=== PATIENT | female | born 1940 ===

== ENCOUNTER 2017-02-19 14:04 | Emergency (ER) | payer MEDICARE, OTHER ==
[2017-02-19 14:04] VITALS: BMI 29.2
[2017-02-19 14:26] VITALS: TEMP 98
[2017-02-19] MEDS ORDERED: Lidocaine 5% Patch TD STA (14:46)
--- NOTE | 2017-02-19 14:51 | ED PDOC ---
HPI: Back Time Seen by Provider: 02/19/17 14:35 Chief Complaint (Nursing): Back Pain Chief Complaint (Provider): LEFT buttock pain History Per: Patient Onset/Duration Of Symptoms: Hrs (since 7am when woke up), Persistent Current Symptoms Are (Timing): Still Present Quality Of Discomfort: Sharp, "Pain" Severity: Moderate Previous Symptoms: None Associated Symptoms: None Exacerbating Factor(s): Movement Additional Complaint(s): Localized pain at LEFT buttock radiating down to LEFT knee, since she woke up this morning. No trauma or injury. No heavy lifting, walking, or exertion yesterday. Denies numbness or weakness. Denies bowel or urinary incontinence or retention. Denies night sweats or unintentional weight loss. Denies fever and chills. She has not tried anything for pain. Denies any back pain. PMD [place] Rusty Hunt Past Medical History Reviewed: Historical Data, Nursing Documentation, Vital Signs Vital Signs: Last Vital Signs Temp 98 F 02/19/17 14:23 Pulse 90 02/19/17 14:23 Resp 18 02/19/17 14:23 BP 94/61 L 02/19/17 14:23 Pulse Ox 98 02/19/17 14:23 - Medical History PMH: Arthritis, Asthma ( CHILD), Diabetes, HTN, Hypercholesterolemia, Hyperlipidemia Denies: Chronic Kidney Disease - Surgical History Surgical History: No Surg Hx - Family History Family History: States: Hypertension - Social History Current smoker - smoking cessation education provided: No Alcohol: None - Home Medications Home Medications: Ambulatory Orders Medication Instructions Recorded Allopurinol [Allopurinol] 100 mg PO DAILY 09/30/14 Calcitriol [Rocaltrol] 0.25 mg PO MWF 09/30/14 Insulin Aspart Mix [novolog Mix 20 unit SUBCUT DAILY 09/30/14 70/30] Insulin Beef Zinc (Lente) [Insulin 20 unit SUBCUT HS 09/30/14 Standard Lente] Levothyroxine Sodium 0.075 mg PO DAILY 09/30/14 [Levothyroxine] Olmesartan Medoxomil [Benicar] 40 mg PO DAILY 09/30/14 Cpeze-9-Ggme Ethyl Esters 1 GM 1 gm PO BID 09/30/14 [Lovaza] Torsemide [Demadex] 10 mg PO DAILY 09/30/14 hydrALAZINE [Apresoline] 50 mg PO TID 09/30/14 Acetaminophen [Acetaminophen Extra 1,000 mg PO Q6 PRN #100 tablet 02/19/17 Strength] Cyclobenzaprine [Flexeril] 5 mg PO Q8 PRN #10 tab 02/19/17 Lidocaine 5% [Lidoderm] 1 ea TD DAILY PRN #20 patch 02/19/17 - Allergies Allergies/Adverse Reactions: Allergies Allergy/AdvReac Type Severity Reaction Status Date / Time naproxen [From Naprosyn] AdvReac VOMITING Verified 02/19/17 14:23 salmon AdvReac ITCHING Uncoded 09/30/14 09:11 Review of Systems ROS Statement: Except As Marked, All Systems Reviewed And Found Negative (and as per HPI) Constitutional: Negative for: Fever, Chills Gastrointestinal: Negative for: Abdominal Pain, Constipation, Melena Genitourinary Female: Negative for: Dysuria, Hematuria, Pelvic Pain Musculoskeletal: Positive for: Leg Pain. Negative for: Back Pain Physical Exam - Physical Exam Appears: Positive for: Uncomfortable, In Acute Distress Head Exam: Positive for: ATRAUMATIC, NORMOCEPHALIC Skin: Positive for: Warm, Dry Eye Exam: Positive for: EOMI, PERRL ENT: Positive for: Other (tacky muc membranes) Neck: Positive for: Painless ROM, Supple Cardiovascular/Chest: Positive for: Regular Rate, Rhythm. Negative for: Murmur Respiratory: Positive for: Normal Breath Sounds. Negative for: Respiratory Distress Gastrointestinal/Abdominal: Positive for: Soft. Negative for: Tenderness, Mass , Distended, Guarding, Rebound Back: Positive for: Other (ttp LEFT SI joint and +LEFT straight leg testing). Negative for: L CVA Tenderness, R CVA Tenderness, Vertebral Tenderness, Muscle Spasm Extremity: Positive for: Normal ROM. Negative for: Deformity Lymphatic: Negative for: Adenopathy Neurologic/Psych: Positive for: Alert. Negative for: Motor/Sensory Deficits, Other (saddle anesthesia) - ECG O2 Sat by Pulse Oximetry: 98 - Progress ED Course And Treament: Accession No. : [id number] Patient Name / ID : TODD SAWANT / [id number] Exam Date : 02/19/2017 14:53:21 ( Approved ) Study Comment : Sex / Age : F / 76Y Creator : DELILAH SANTACRUZ MD Dictator : DELILAH SANTACRUZ MD Councilman : Almond Blancher : DELILAH SANTACRUZ MD Approver2 : Report Date : 02/19/2017 16:02:51 My Comment : PROCEDURE: Radiographs of the Lumbar Spine. HISTORY: Left buttock pain COMPARISON: No prior. FINDINGS: BONES: There is normal alignment of the lumbar vertebral bodies. Lumbar lordosis is maintained. Vertebral bodies are normal in height. There is diffuse bone demineralization. There is no acute fracture, spondylolysis or spondylolisthesis. DISC SPACES: There is moderate degenerative disc disease at L2-3 and L5-S1 with reduced disc heights. The remaining disc heights are maintained. OTHER FINDINGS: There are no pathologic soft tissue calcifications. Both sacroiliac joints are normal IMPRESSION: 1. No acute fracture, spondylolysis or spondylolisthesis. 2. Moderate degenerative disc disease at L2-3 and L5-S1. Re-evaluation Time: 15:30 Condition: Re-examined, Improved Disposition - Clinical Impression Clinical Impression: Sciatica Counseled Patient/Family Regarding: Studies Performed, Diagnosis, Need For Followup, Rx Given - Disposition Referrals: Pebbles Hunt MD [Family Provider] - 02/22/17 [facility] [Outside] - 02/22/17 ([facility] Disposition: Routine/Home Disposition Time: 15:30 Condition: IMPROVED Prescriptions: Acetaminophen [Acetaminophen Extra Strength] 1,000 mg PO Q6 PRN #100 tablet PRN Reason: PAIN Cyclobenzaprine [Flexeril] 5 mg PO Q8 PRN #10 tab PRN Reason: muscle spasm Lidocaine 5% [Lidoderm] 1 ea TD DAILY PRN #20 patch PRN Reason: PAIN Instructions: Sciatica (ED) Print Language: UKRAINIAN
[2017-02-19] MEDS ORDERED: Lidocaine 1% Inj (20ml) ONE (15:16)
--- NOTE | 2017-02-19 16:04 | RAD ---
PROCEDURE: Radiographs of the Lumbar Spine. HISTORY: Left buttock pain COMPARISON: No prior. FINDINGS: BONES: There is normal alignment of the lumbar vertebral bodies. Lumbar lordosis is maintained. Vertebral bodies are normal in height. There is diffuse bone demineralization. There is no acute fracture, spondylolysis or spondylolisthesis. DISC SPACES: There is moderate degenerative disc disease at L2-3 and L5-S1 with reduced disc heights. The remaining disc heights are maintained. OTHER FINDINGS: There are no pathologic soft tissue calcifications. Both sacroiliac joints are normal IMPRESSION: 1. No acute fracture, spondylolysis or spondylolisthesis. 2. Moderate degenerative disc disease at L2-3 and L5-S1.
[2017-02-19 16:31] VITALS: BP 100/64; PULSE 66; RESP 16
[2017-02-19 16:40] VITALS: O2SAT 98
== END 2017-02-19 16:40 | disposition home or self-care (01) ==
LOC: H.ER 14:04
DX: M54.32 Sciatica, left side (principal)

== ENCOUNTER 2017-05-01 06:50 | Day surgery (SDC) | payer MEDICARE, OTHER ==
[2017-05-01 08:33] VITALS: BMI 29.4
[2017-05-01] MEDS ORDERED: Lidocaine 1% Inj (20ml) ONE (09:15)
[2017-05-01] MEDS ORDERED: Midazolam 2 MG/2 ML VIAL ONE (09:56)
[2017-05-01] MEDS ORDERED: Absorbable Gelatin Sponge Size 12-7 ONE (10:06)
--- NOTE | 2017-05-01 10:17 | CP.SDSHP ---
Same Day Surgery H & P - History Proposed Procedure: US guided renal biopsy Pre-Op Diagnosis: Renal insufficiency - Allergies Allergies: Allergies ibuprofen [From Advil] Allergy (Verified 05/01/17 08:41) DIZZINESS naproxen [From Naprosyn] Adverse Reaction (Verified 05/01/17 08:41) VOMITING salmon Adverse Reaction (Uncoded 05/01/17 08:41) ITCHING - Physical Exam Vital Signs: Vital Signs 05/01/17 05/01/17 05/01/17 08:25 08:29 09:25 Temperature 97.8 F 98.7 F Pulse Rate 97 H 97 H 90 Respiratory 20 18 Rate Blood Pressure 153/81 H 160/70 H O2 Sat by Pulse 97 100 Oximetry Mental Status: Alert & Oriented x3 Neuro: WNL Heart: WNL Lungs: WNL - Impression Impression: Pt with renal insufficiency. Ultrasound showed echogenic kidneys. Plan US guided right renal biopsy. Informed consent obtained. Pt. Evaluated Today:Candidate for Anesthesia & Procedure: Yes (ASA 3 Malampati 3) - Date & Time Date: 05/01/17 Time: 09:55 Short Stay Discharge - Short Stay Discharge Admitting Diagnosis/Reason for Visit: PROREINURIA Referrals: Pebbles Hunt MD [Primary Care Provider] -
--- NOTE | 2017-05-01 10:19 | PCM.SURG1 ---
Surgeon's Initial Post Op Note - Surgeon's Notes Surgeon: Duc Nance MD Property Insurance Inspector: NONE Type of Anesthesia: IV Sedation Pre-Operative Diagnosis: Renal insufficiency Operative Findings: US showed echogenic right and left kidneys consistent with medical renal disease. Post-Operative Diagnosis: Renal insufficiency Operation Performed: US guided right renal biopsy. 18 gauge core specimen sent for routine histology. Biopsy tract embolized with gelfoam. Specimen/Specimens Removed: 18 gauge core x 3 Estimated Blood Loss: EBL {In ML}: 1 Blood Products Given: N/A Drains Used: No Drains Post-Op Condition: Fair Date of Surgery/Procedure: 05/01/17 Time of Surgery/Procedure: 10:15
[2017-05-01 13:09] VITALS: RESP 18; TEMP 97.6
[2017-05-01 13:41] VITALS: BP 141/59; PULSE 58; O2SAT 93
--- NOTE | 2017-05-02 13:38 | US ---
PROCEDURE: Date of procedure: 05/01/2017 Procedure: Ultrasound-guided right renal biopsy, CPT 15274 Ultrasound guidance for biopsy, [address]83 Medication: 8 cc 2% Lidocaine, patient received IV sedation by the anesthesiologist along with physiologic monitoring. HISTORY: Renal insufficiency TECHNIQUE: Following informed consent and procedure time-out, the patient was placed prone on the interventional table and a limited ultrasound showed echogenic left and right kidneys. Access to the lower pole left kidney was obstructed by overlying ribs. Right kidney was selected for biopsy. There is no hydronephrosis or mass. The patient right back was prepped and draped in the usual sterile fashion. After patient sedated by the anesthesiologist and the skin anesthetized with lidocaine, an 18 gauge core needle was advanced percutaneously towards the lower pole cortex. Upon confirmation of needle position, three-18 gauge core specimens were obtained and sent for routine pathology. The biopsy tract was then embolized with Gelfoam. A post biopsy ultrasound showed no hematoma. There were no immediate complications. IMPRESSION: Ultrasound-guided right renal biopsy.
== END 2017-05-01 12:45 | disposition home or self-care (01) ==
LOC: H.OPSURG 06:50
PROVIDERS: ATTEND Internal Medicine Nephrology
DX: N28.9 Disorder of kidney and ureter, unspecified (principal); Z88.6 Allergy status to analgesic agent; M32.14 Glomerular disease in systemic lupus erythematosus; E78.5 Hyperlipidemia, unspecified; E11.22 Type 2 diabetes mellitus with diabetic chronic kidney disease; I12.9 Hypertensive chronic kidney disease with stage 1 through stage 4 chronic kidney disease, or unspecified chronic kidney disease; N18.2 Chronic kidney disease, stage 2 (mild)
CPT/HCPCS: 50200; 82948; 88305; J2250; J3010

== ENCOUNTER 2017-09-12 10:01 | Day surgery (SDC) | payer MEDICARE, OTHER ==
[2017-08-03 08:07] VITALS: BMI 29.6
--- NOTE | 2017-09-12 10:45 | CP.PCM.PN ---
Subjective - Date & Time of Evaluation Date of Evaluation: 09/12/17 Time of Evaluation: 10:42 - Subjective Subjective: 77 year old female with PMHx HTN, IDDM2 seen in [facility] for preoperative evaluation prior to undergoing left ankle arthroscopy with synovectomy and lateral ankle stabilization. Patient is AAO x 3 and NAD at time of visit. She states that she experiences moderate pain to her left ankle when she walks and denies any further pedal complaints at this time. She denies any recent N/V/F/C/CP/SOB/D/ posterior calf pain when squeezed. States that she has been NPO since ten o' clock last night. Also states that she had previous surgery on this foot where she experienced some nausea postoperatively. Patient also states that she took her blood pressure medication this morning. Objective - Constitutional Appears: Well, Non-toxic, No Acute Distress - Extremities Exam Additional comments: LLE focused exam: Vasc: DP/PT pulses 2/4 b/l. Skin temperature warm to warm from proximal to distal. CFT < 3 seconds to all digits b/l. Minimal edema noted to lateral left ankle Neuro: Epicritic and protective sensation grossly intact b/l Derm: No open lesions, wounds, maceration, xerosis, abnormal pigmentation or abnormal growths noted b/l MSK: Minimal POP to level of ATFL. Pain with PROM and AROM of left ankle joint. No other gross musculoskeletal deformities noted - Neurological Exam Neurological Exam: Alert, Awake, Oriented x3 - Psychiatric Exam Psychiatric exam: Normal Affect, Normal Mood Assessment and Plan - Assessment and Plan (Free Text) Assessment: 77 year old female seen in [facility] preoperatively before surgery with Dr. Andrew this afternoon (Left ankle arthroscopy and left lateral ankle stabilization) Plan: Pt was seen and examined in [facility] Pt NPO status was confirmed All Pre-op testing and clearance was in the chart Pt has exhausted all conservative treatment at this time and is opting for surgical intervention Pt was explained procedure and post-operative course All pt's questions were answered to satisfaction No guarantees were made Pt understands all risks, benefits and complications of procedure Pt will follow-up with Dr. Andrew
--- NOTE | 2017-09-12 10:52 | CP.SDSHP ---
Same Day Surgery H & P - History Proposed Procedure: Left ankle arthroscopy with synovectomy, left lateral ankle stabilization Pre-Op Diagnosis: Painful, arthritic left ankle and weakened lateral collateral ligaments of left ankle - Previous Medical/Surgical History Pain: 6.Severe Pain Previous Surgical History: Left ankle - Allergies Allergies: Allergies ibuprofen [From Advil] Allergy (Verified 05/01/17 08:41) DIZZINESS naproxen [From Naprosyn] Adverse Reaction (Verified 05/01/17 08:41) VOMITING salmon Adverse Reaction (Uncoded 05/01/17 08:41) ITCHING - Physical Exam Mental Status: Alert & Oriented x3 - {Optional Preform as Required} Integument: WNL Ortho: Other - Impression Pt. Evaluated Today:Candidate for Anesthesia & Procedure: Yes - Date & Time Date: 09/12/17 Time: 10:52 Short Stay Discharge - Short Stay Discharge Admitting Diagnosis/Reason for Visit: M65.872 /M25.572/ S93.492S/ M25.272/ Disposition: HOME/ ROUTINE Referrals: Pebbles Hunt MD [Primary Care Provider] -
[2017-09-12] MEDS ORDERED: Lidocaine 1% Inj (20ml) IJ ONE (10:53)
[2017-09-12] MEDS ORDERED: ceFAZolin 1 GM in Sodium Chloride 0.9% 100 ML IVPB ONE (10:53)
[2017-09-12] MEDS ORDERED: Bupivacaine 0.5% Inj(30mL) IJ ONE (10:53)
[2017-09-12] MEDS ORDERED: Sodium Chloride 0.9% 1,000 ML IV SCH (11:00)
[2017-09-12] MEDS ORDERED: Lactated Ringer's 1,000 ML IV ONE (12:00)
[2017-09-12] MEDS ORDERED: Propofol 10 mg/ml Inj (20 ML) ONE (13:58)
[2017-09-12] MEDS ORDERED: Midazolam 2 MG/2 ML VIAL ONE (13:58)
[2017-09-12] MEDS ORDERED: ePHEDrine 50 mg/ml Inj ONE (13:59)
[2017-09-12] MEDS ORDERED: Rocuronium 10 mg/ml (5 ml) ONE (14:00)
[2017-09-12] MEDS ORDERED: Lidocaine 4% (Laryng-O-Jet) Kit MM ONE (14:01)
[2017-09-12] MEDS ORDERED: Succinylcholine 200 mg/10 ml Inj IV ONE (14:01)
[2017-09-12] MEDS ORDERED: Lidocaine Hydrochloride 1% 0 ML ONE (14:02)
[2017-09-12] MEDS ORDERED: Bupivacaine 0.5% Inj(30mL) ONE (14:03)
[2017-09-12] MEDS ORDERED: EPINEPHrine 1 mg/ml (1:1000) Inj ONE (14:09)
[2017-09-12] MEDS ORDERED: Phenylephrine 10 mg/ml Inj ONE (14:38)
[2017-09-12] MEDS ORDERED: Dexamethasone 4 mg/1 ml ONE (15:09)
[2017-09-12] MEDS ORDERED: Desflurane Inhalation Anesthetic Liq (240 ml) ONE (15:11)
[2017-09-12] MEDS ORDERED: Esmolol 100 mg/10ml Inj IV ONE (15:37)
[2017-09-12] MEDS ORDERED: Bupivacaine 0.5% 50 ML IJ ONE (15:50)
--- NOTE | 2017-09-12 16:07 | PCM.SURG1 ---
Surgeon's Initial Post Op Note - Surgeon's Notes Surgeon: Dr. Aaron Andrew, DPM Senior Physician: Emery Breen PGY3, Luis Antonio Wiseman PGY2 Type of Anesthesia: General Endo Anesthesia Administered By: Dr. Lopez Pre-Operative Diagnosis: Synovitis and fibrosis of left ankle, instability left ankle, pain Operative Findings: See dictation report. M- 4-0 vicryl, 4-0 monocryl, suture conrad, internal brace. I- 20 cc 0.5% marcaine plain Post-Operative Diagnosis: Same Operation Performed: Surgical arthroscopy of left ankle, lateral ankle stabilization, left ankle platelet rich plasma grafting Specimen/Specimens Removed: None Estimated Blood Loss: EBL {In ML}: 3 Blood Products Given: N/A Drains Used: No Drains Post-Op Condition: Good Date of Surgery/Procedure: 09/12/17 Time of Surgery/Procedure: 16:08
[2017-09-12 16:35] VITALS: RESP 18
[2017-09-12 19:07] VITALS: BP 150/69; PULSE 99; TEMP 98; O2SAT 96
--- NOTE | 2017-09-14 08:20 | OP ---
PROCEDURE DATE: 09/12/2017 PREOPERATIVE DIAGNOSES: 1. Left ankle synovitis and fibrosis. 2. Left ankle instability. 3. Left ankle pain and edema. POSTOPERATIVE DIAGNOSES: 1. Left ankle synovitis and fibrosis. 2. Left ankle instability. 3. Left ankle pain and edema. PROCEDURE PERFORMED: 1. Left ankle surgical arthroscopy. 2. Left ankle lateral ankle stabilization. 3. Left ankle grafting with platelet-rich plasma. SURGEON: Aaron Andrew DPM ASSISTANTS: Delisa Wiseman DPM, PGY-[address] Emery Breen DPM, PGY-3. TYPE OF ANESTHESIA: General. ANESTHESIA ADMINISTERED BY: Priyanka Lopez MD. INDICATION: The patient is a 77-year-old female with the above-mentioned diagnoses. The patient is being treated by Dr. Andrew's office on an outpatient basis where she has exhausted multiple forms of conservative treatment. The patient seeks surgical intervention at this time. All risks, benefits, and possible complications to the postprocedure have been explained to the patient at length. The patient verbalizes understanding and wishes to proceed. All questions were answered. No guarantees were given or implied. Consent was signed and n.p.o. status was confirmed prior to bringing the patient to the operating room. OPERATIVE PROCEDURE: The patient was brought into the operating room and placed on the operating room table in the supine position. A well-padded pneumatic thigh tourniquet was applied to the patient's left thigh. Once general anesthesia was achieved, the left lower extremity was prepped and draped in the usual sterile manner and the procedure began. PROCEDURE 1: Left ankle surgical arthroscopy. Attention was directed to the dorsal aspect of the patient's left ankle where the ankle joint was infiltrated with 10 mL of 1% lidocaine plain. Next, utilizing a marking pen, the anatomical landmarks were identified as well as the medial and lateral gutter. Next, utilizing #11 blade, the medial portal was created and deepened with the hemostat for the level of the ankle joint. Next, using an obturator, the ankle joint was entered and a scope was inserted. There abundance of hypertrophic synovium as well as fibrous bands within the ankle joint. The lateral portal was then created utilizing an #11 blade and a hemostat down to the level of the ankle joint. The trocar was then placed into the lateral port and triangulated along the scope. At this time, a 3.5 Aggressive shaver was inserted through the lateral portal and debridement of the hypertrophic synovium and fibrous band begun. Ankle joint was also osteochondral lesion. Once the debridement was complete, the scope and shaver were then removed from a port. The medial portal was then closed with #4-0 Monocryl. PROCEDURE 2: Left lateral ankle stabilization. Attention was then directed to the lateral aspect of the ankle joint overlying where the anterior tibiofibular ligament is located. A curvilinear incision was created overlying the ATFL at the level of lateral gutter of the ankle joint. The incision was carried down to the subcutaneous tissue with care being taken to identify and retract all vital neurovascular structures. All bleeders were cauterized and ligated as necessary. Next, utilizing a #15 blade, a capsular structures were incised on a vertical fashion overlying the sinus tarsi. Once the capsular structures were incised, it was noted that the ATFL and ruptured at the distal portion intact. At this time, ankle joint was inverted and articular cartilage and lateral gutter were inspected for any osteochondral lesions and none were noted. Ankle joint was then irrigated. Next, the drill bit from the internal brace kit was utilized to create a drill hole on of the talus approximately 45 degrees to prevent the ankle joint. The drill hole was then packed. Next, Silverlock, which was loaded with FiberTape was placed into the drill hole. Next, the drill bit from the internal brace kit was used to create a drill hole approximately 0.5 cm proximal to the distal tip of the tibia and Silverlock tape was used. The FiberTape was inserted operative field to perform a modified Brostrom technique. Next, a drill bit was used to create a drill hole in the lateral aspect of the talus and a 2.5 mL SutureTak was placed in the drill hole. The sutures were then ligament and the capsular structures in an over and over suture fashion. technique, the foot was placed in dorsal flexion everted position as the sutures were tied down to the ATFL. The FiberTape from the internal brace was cut through the Silverlock and ankle was inserted into the talar tunnel with the mallet was fixed for proper placement and fit in FiberTape was cut and removed from the operative field. Ankle was eversion and inversion with excellent stability noted. Utilizing a mini FiberWire, the periosteum subcutaneous tissues were approximated. PROCEDURE 3: Grafting with platelet-rich plasma. Attention was directed back to the incision line. autologous platelet-rich plasma was introduced into the site. Next with the use of 4-0 Vicryl, the subcutaneous tissue was reapproximated. The skin was then reapproximated with 4-0 Monocryl in a subcuticular pattern. A postoperative instruction consisting of 20 mL of 0.5% Marcaine plain was given in a local block fashion to the patient's left ankle. Postoperative dressings included Steri-Strips, saline, gauze, 4x4s, Kerlix, and Fish. POSTOPERATIVE CONDITION: The patient tolerated the anesthesia and procedure well with no apparent complications or complaints. The patient was transferred from operating room to the recovery room with vital signs stable and neurovascular structures intact. The patient will follow up with Dr. Andrew in his office on an outpatient basis. Delisa Wiseman DPM Aaron Andrew DPM
== END 2017-09-12 19:40 | disposition home or self-care (01) ==
LOC: H.OPSURG 10:01
PROVIDERS: ATTEND Podiatrist
DX: M65.872 Other synovitis and tenosynovitis, left ankle and foot (principal); I10 Essential (primary) hypertension; E11.9 Type 2 diabetes mellitus without complications; M25.272 Flail joint, left ankle and foot; M25.572 Pain in left ankle and joints of left foot; Z79.4 Long term (current) use of insulin; Z88.6 Allergy status to analgesic agent
CPT/HCPCS: 0232T; 29899; 82948; 97161; C1713; G8978; G8979; G8980; J0171; J0330; J0690; J1100; J2001; J2250; J2370; J2704; J2765; J3010; J7030; J7120

== ENCOUNTER 2018-03-02 06:34 | Emergency (ER) | payer MEDICARE, OTHER ==
[2018-03-02 06:53] VITALS: BMI 30.2
[2018-03-02] MEDS ORDERED: Dextrose 5%/0.45% NS 1,000 ML IV SCH (07:15)
--- NOTE | 2018-03-02 07:20 | ED PDOC ---
HPI: General Adult Time Seen by Provider: 03/02/18 07:00 Chief Complaint (Nursing): Altered Mental Status Chief Complaint (Provider): Altered Mental Status History Per: Patient, Family History/Exam Limitations: no limitations Onset/Duration Of Symptoms: Mins (CONTINUOUS IMPROVEMENT DIRECTOR) Current Symptoms Are (Timing): Better Additional Complaint(s): 77 year old female with a history of diabetes, HTN and hypothyroidism presents to the ED via EMS after patient was found diaphoretic and confused by family this morning. On arrival, glucose was found to be 55 and PO glucose was administered. Patient then became awake and responsive, but had no recollection of the event. She took her insulin last night. Denies chest pain, headache and focal weakness. PMD: Dr. Pebbles Hunt Past Medical History Reviewed: Historical Data, Nursing Documentation, Vital Signs Vital Signs: Last Vital Signs Temp 98.7 F 03/02/18 06:53 Pulse 99 H 03/02/18 06:53 Resp 20 03/02/18 06:53 BP 153/59 H 03/02/18 06:53 Pulse Ox 99 03/02/18 06:53 - Medical History PMH: Arthritis, Asthma ( CHILD), Diabetes, HTN, Hypercholesterolemia, Hyperlipidemia, Hypothyroidism, Chronic Kidney Disease - Surgical History Surgical History: No Surg Hx - Family History Family History: States: Hypertension - Home Medications Home Medications: Ambulatory Orders Medication Instructions Recorded Calcitriol [Rocaltrol] 0.25 mg PO DAILY 09/30/14 Insulin Aspart Mix [novolog Mix 15 unit SUBCUT DAILY 09/30/14 70/30] Levothyroxine Sodium 0.075 mg PO DAILY 09/30/14 [Levothyroxine] [id number]-1-Koqf Ethyl Esters 1 GM 2 gm PO DAILY 09/30/14 [Lovaza] hydrALAZINE [Apresoline] 50 mg PO Q8 09/30/14 Insulin Glargine, Recombina 25 unit SUBCUT QPM 05/01/17 [Lantus] Losartan Potassium [Cozaar] 100 mg PO DAILY 05/01/17 Allopurinol [Zyloprim] 100 mg PO DAILY 09/12/17 - Allergies Allergies/Adverse Reactions: Allergies Allergy/AdvReac Type Severity Reaction Status Date / Time ibuprofen [From Advil] Allergy DIZZINESS Verified 03/02/18 06:52 naproxen [From Naprosyn] AdvReac VOMITING Verified 03/02/18 06:52 salmon AdvReac ITCHING Uncoded 03/02/18 06:52 Review of Systems ROS Statement: Except As Marked, All Systems Reviewed And Found Negative Constitutional: Positive for: Sweats Neurological: Positive for: Confusion. Negative for: Weakness, Headache Physical Exam - Reviewed Nursing Documentation Reviewed: Yes Vital Signs Reviewed: Yes - Physical Exam Appears: Positive for: Non-toxic, No Acute Distress Head Exam: Positive for: ATRAUMATIC, NORMAL INSPECTION, NORMOCEPHALIC Skin: Positive for: Normal Color, Warm, Dry Eye Exam: Positive for: EOMI, Normal appearance, PERRL Neck: Positive for: Normal, Painless ROM, Supple Cardiovascular/Chest: Positive for: Regular Rate, Rhythm. Negative for: Murmur Respiratory: Positive for: Normal Breath Sounds. Negative for: Respiratory Distress Gastrointestinal/Abdominal: Positive for: Normal Exam, Soft. Negative for: Tenderness Extremity: Positive for: Normal ROM (x 4). Negative for: Deformity Neurologic/Psych: Positive for: Alert, Oriented (x 3). Negative for: Motor/Sensory Deficits, Facial Droop - Laboratory Results Result Diagrams: 03/02/18 08:22 03/02/18 08:22 - ECG O2 Sat by Pulse Oximetry: 99 (RA) Pulse Ox Interpretation: Normal Medical Decision Making Medical Decision Makin:07 Impression: Initial Plan: --EKG --CMP --CBC --Dextrose 5% IV 80 mls/hr Scribe Attestation: Documented by Mariah Valencia acting as a scribe for Maxime Simmons MD Advised 24 hr obs for hypoglycemia. Pt declines admission. Aware of risks including recurrent hypoglycemia and . Will f/u [facility] Provider Scribe Attestation: All medical record entries made by the Scribe were at my direction and personally dictated by me. I have reviewed the chart and agree that the record accurately reflects my personal performance of the history, physical exam, m edical decision making, and the department course for this patient. I have also personally directed, reviewed, and agree with the discharge instructions and disposition. Disposition - Clinical Impression Clinical Impression: Hypoglycemia - Patient ED Disposition Is Patient to be Admitted: No - Disposition Referrals: Pebbles Hunt MD [Family Provider] - Disposition: Routine/Home Disposition Time: 10:35 Condition: FAIR Instructions: Low Blood Sugar, Adult (DC) Forms: Nosto (Uzbek)
[2018-03-02 08:27] LABS: BASO % 0.3 % (0.0-2.0); EOS # 0.1 K/uL (0.0-0.7); EOS % 0.7 % (0.0-4.0); HEMOGLOBIN 9.8 g/dL (12.0-16.0); LYMPH # 1.6 K/uL (1.0-4.3); LYMPH % 17.9 % (20.0-40.0); MEAN CELL VOLUME 96.3 fl (81.0-99.0); MEAN CORPUSCULAR HEMOGLOBIN 31.4 pg (27.0-31.0); MEAN CORPUSCULAR HGB CONC 32.6 g/dL (33.0-37.0); MEAN PLATELET VOLUME 9.1 fl (7.2-11.7); MONO # 0.9 K/uL (0.0-0.8); MONO % 9.7 % (0.0-10.0); NEUT # 6.4 K/uL (1.8-7.0); NEUT % 71.4 % (50.0-75.0); RBC 3.13 Mil/uL (3.80-5.20); RED CELL DISTRIBUTION WIDTH 14.5 % (11.5-14.5); WHITE BLOOD COUNT 8.9 K/uL (4.8-10.8)
[2018-03-02 08:37] LABS: ALB/GLOB RATIO 1.1 (1.0-2.1); ALBUMIN 3.9 g/dL (3.5-5.0); CALCIUM 9.8 mg/dL (8.4-10.2)
--- NOTE | 2018-03-02 09:09 | CARD ---
APPROVED REPORT Date of service: 03/02/2018 EKG Measurement Heart [id number] ID [id number] <Conclusion> Normal sinus rhythm Nonspecific ST abnormality Abnormal ECG
[2018-03-02 10:50] VITALS: BP 158/66; PULSE 82; RESP 15; TEMP 98; O2SAT 97
--- NOTE | 2018-03-02 10:50 | CP.PCM.CON ---
<Mireya Breen - Last Filed: 03/02/18 10:50> History of Present Illness - History of Present Illness History of Present Illness: Patient seen and evaluated by me in the ER. Patient is AAOx3, family at bedside. Patient was informed about admission but family and patient requested discharge home. Patient signed AMA, risks explained, ER precautions discussed, advised to return of symptoms reoccurs. PMD: Dr. Hunt S: Patient came to ER after found diaphoretic and confused by family. Upon ar rival, Blood sugar 55, given PO glucose. Patient is asymptomatic currently. O: VS and Labs reviewed, EKG reviewed PE: AAOx3 A/P: Plan was to admit patient for further evaluation and treatment but patient signs AMA. Case discussed with Dr. Parish (Case discussed with Dr. Hunt ) --- Mireya Breen, PGY-II Past Patient History - Past Medical History & Family History Past Medical History?: Yes - Past Social History Smoking Status: Never Smoked - CARDIAC Hx Hypercholesterolemia: Yes Hx Hypertension: Yes - PULMONARY Hx Asthma: Yes ( CHILD) - NEUROLOGICAL Hx Neurological Disorder: No - HEENT Hx HEENT Problems: Yes Hx Cataracts: Yes Hx Glaucoma: Yes - RENAL Hx Chronic Kidney Disease: Yes - ENDOCRINE/METABOLIC Hx Hypothyroidism: Yes - HEMATOLOGICAL/ONCOLOGICAL Hx Blood Disorders: No - INTEGUMENTARY Hx Dermatological Problems: No - MUSCULOSKELETAL/RHEUMATOLOGICAL Hx Arthritis: Yes - GASTROINTESTINAL Hx Gastrointestinal Disorders: No - GENITOURINARY/GYNECOLOGICAL Hx Genitourinary Disorders: No - PSYCHIATRIC Hx Emotional Abuse: No Hx Physical Abuse: No Hx Substance Use: No - SURGICAL HISTORY Hx Surgeries: Yes Hx Cataract Extraction: Yes Hx Dilation and Curettage: Yes Hx Musculoskeletal Surgery: Yes (LEFT FOOT) - ANESTHESIA Hx Anesthesia: Yes Hx Anesthesia Reactions: Yes (too much vomiting) Hx Malignant Hyperthermia: No Meds Allergies/Adverse Reactions: Allergies Allergy/AdvReac Type Severity Reaction Status Date / Time ibuprofen [From Advil] Allergy DIZZINESS Verified 03/02/18 06:52 naproxen [From Naprosyn] AdvReac VOMITING Verified 03/02/18 06:52 salmon AdvReac ITCHING Uncoded 03/02/18 06:52 - Medications Medications: Current Medications Dextrose/Sodium Chloride (Dextrose 5%/0.45% Ns 1000 Ml) 1,000 mls @ 80 mls/hr IV .[id number] ROME Stop: 03/03/18 07:07 Last Admin: 03/02/18 07:51 Dose: 80 mls/hr Results - Vital Signs Recent Vital Signs: Last Vital Signs Temp 98.7 F 03/02/18 06:53 Pulse 99 H 03/02/18 06:53 Resp 20 03/02/18 06:53 BP 153/59 H 03/02/18 06:53 Pulse Ox 99 03/02/18 10:36 - Labs Result Diagrams: 03/02/18 08:22 03/02/18 08:22 Labs: Laboratory Results - last 24 hr 03/02/18 03/02/18 03/02/18 06:48 08:22 08:22 WBC 8.9 RBC 3.13 L Hgb 9.8 L Hct 30.2 L MCV 96.3 D MCH 31.4 H MCHC 32.6 L RDW 14.5 Plt Count 250 MPV 9.1 Neut % (Auto) 71.4 Lymph % (Auto) 17.9 L [place] % (Auto) 9.7 Eos % (Auto) 0.7 Baso % (Auto) 0.3 Neut # (Auto) 6.4 Lymph # (Auto) 1.6 [place] # (Auto) 0.9 H Eos # (Auto) 0.1 Baso # (Auto) 0.0 Sodium 142 Potassium 5.0 Chloride 112 H Carbon Dioxide 17 L Anion Gap 18 BUN 73 H Creatinine 4.3 H Est GFR ( Amer) 12 Est GFR (Non-Af Amer) 10 POC Glucose (mg/dL) 192 H Random Glucose 192 H Calcium 9.8 Total Bilirubin 0.2 AST 28 ALT 23 Alkaline Phosphatase 89 Total Protein 7.3 Albumin 3.9 Globulin 3.4 Albumin/Globulin Ratio 1.1 <Wilberto Parish D - Last Filed: 03/02/18 11:05> Results - Vital Signs Recent Vital Signs: Last Vital Signs Temp 98 F 03/02/18 10:44 Pulse 82 03/02/18 10:44 Resp 15 03/02/18 10:44 BP 158/66 H 03/02/18 10:44 Pulse Ox 97 03/02/18 10:44 - Labs Result Diagrams: 03/02/18 08:22 03/02/18 08:22 Labs: Laboratory Results - last 24 hr 10/06/18 10/06/18 10/06/18 06:48 08:22 08:22 WBC 8.9 RBC 3.13 L Hgb 9.8 L Hct 30.2 L MCV 96.3 D MCH 31.4 H MCHC 32.6 L RDW 14.5 Plt Count 250 MPV 9.1 Neut % (Auto) 71.4 Lymph % (Auto) 17.9 L [place] % (Auto) 9.7 Eos % (Auto) 0.7 Baso % (Auto) 0.3 Neut # (Auto) 6.4 Lymph # (Auto) 1.6 [place] # (Auto) 0.9 H Eos # (Auto) 0.1 Baso # (Auto) 0.0 Sodium 142 Potassium 5.0 Chloride 112 H Carbon Dioxide 17 L Anion Gap 18 BUN 73 H Creatinine 4.3 H Est GFR ( Amer) 12 Est GFR (Non-Af Amer) 10 POC Glucose (mg/dL) 192 H Random Glucose 192 H Calcium 9.8 Total Bilirubin 0.2 AST 28 ALT 23 Alkaline Phosphatase 89 Total Protein 7.3 Albumin 3.9 Globulin 3.4 Albumin/Globulin Ratio 1.1 Attending/Attestation - Attestation I have personally seen and examined this patient.: Yes I have fully participated in the care of the patient.: Yes I have reviewed all pertinent clinical information: Yes
== END 2018-03-02 10:44 | disposition home or self-care (01) ==
LOC: H.ER 06:34
DX: E11.649 Type 2 diabetes mellitus with hypoglycemia without coma (principal); Z79.4 Long term (current) use of insulin; I12.9 Hypertensive chronic kidney disease with stage 1 through stage 4 chronic kidney disease, or unspecified chronic kidney disease
CPT/HCPCS: 80053; 82948; 85025; 93005; 96360; 96361; 99285; J7042

== ENCOUNTER 2018-08-19 14:13 | Inpatient (IN) | payer MEDICARE, OTHER ==
[2018-08-19 14:14] VITALS: BMI 27.4
--- NOTE | 2018-08-19 14:51 | ED PDOC ---
HPI: General Adult Time Seen by Provider: 08/19/18 14:39 Chief Complaint (Nursing): Abnormal Labs Chief Complaint (Provider): Abnormal labs History Per: Patient History/Exam Limitations: no limitations Additional Complaint(s): 78yo female, sent to ER by Dr. Robbins for initiation of hemodialysis; patient had a right upper extremity shunt placed in April; offers no active complaints. She denies any weakness, chest pain, shortness of breath, and offers no medical complaints. PMD: Diabetes, hypertension, hyperlipidemia, chronic kidney diease Past Medical History Reviewed: Historical Data, Nursing Documentation, Vital Signs Vital Signs: Last Vital Signs Temp 97 F L 08/19/18 14:19 Pulse 78 08/19/18 14:19 Resp 18 08/19/18 14:19 BP 177/75 H 08/19/18 14:19 Pulse Ox 95 08/19/18 14:19 - Medical History PMH: Anemia, Arthritis, Asthma ( CHILD), Diabetes, Fractures (LEFT ANKLE), HTN, Hypercholesterolemia, Hyperlipidemia, Hypothyroidism, Chronic Kidney Disease - Family History Family History: States: Hypertension - Immunization History Hx Tetanus Toxoid Vaccination: No Hx Influenza Vaccination: Yes Hx Pneumococcal Vaccination: No - Home Medications Home Medications: Ambulatory Orders Medication Instructions Recorded Calcitriol [Rocaltrol] 0.25 mg PO DAILY 09/30/14 Qvbuj-2-Vfet Ethyl Esters 1 GM 4 gm PO BID 09/30/14 [Lovaza] Allopurinol [Zyloprim] 100 mg PO DAILY 09/12/17 Ferrous Sulfate 325 mg PO BID 06/14/18 Hydralazine HCl 100 mg PO TID 06/14/18 Patiromer Calcium Sorbitex 8.4 gm PO MWF 06/14/18 [Veltassa] Sevelamer Carbonate [Renvela] 800 mg PO TID 06/14/18 Torsemide [Demadex] 20 mg PO DAILY 06/14/18 Vit B Comp No.3/Folic/C/Biotin 1 tab PO DAILY 06/14/18 [[employer]os[employer] Handler-Jt Rx Tablet] Cholecalciferol (Vitamin D3) 2,000 unit PO DAILY 08/19/18 [Vitamin D3] Darbepoetin Bj in Polysorbat 100 mcg SC ASDIR 08/19/18 [Aranesp] Insulin Aspart Prot/Insuln Asp 20 unit SC ACL 08/19/18 [Novolog Mix 70-30 Vial] Insulin Glargine,Hum.rec.anlog 15 unit SC DAILY 08/19/18 [Basaglar Kwikpen U-100] Levothyroxine [Synthroid] 75 mcg PO DAILY 08/19/18 Olmesartan [BenicarNf] 40 mg PO DAILY 08/19/18 cycloSPORINE [Restasis] 1 drop EACHEYE Q12 08/19/18 - Allergies Allergies/Adverse Reactions: Allergies Allergy/AdvReac Type Severity Reaction Status Date / Time naproxen [From Aleve] Allergy ITCHING Verified 06/20/18 06:40 salmon AdvReac Intermediate ITCHING Uncoded 05/07/18 10:27 Review of Systems ROS Statement: Except As Marked, All Systems Reviewed And Found Negative Constitutional: Negative for: Fever, Chills Cardiovascular: Negative for: Chest Pain Respiratory: Negative for: Shortness of Breath Neurological: Negative for: Weakness, Numbness Physical Exam - Reviewed Nursing Documentation Reviewed: Yes Vital Signs Reviewed: Yes - Physical Exam Appears: Positive for: No Acute Distress Head Exam: Positive for: ATRAUMATIC, NORMAL INSPECTION, NORMOCEPHALIC Skin: Positive for: Normal Color Eye Exam: Positive for: Normal appearance, EOMI, PERRL Neck: Positive for: Supple Cardiovascular/Chest: Positive for: Regular Rate, Rhythm, Murmur Respiratory: Positive for: Normal Breath Sounds. Negative for: Respiratory Distress Gastrointestinal/Abdominal: Positive for: Soft Back: Positive for: Normal Inspection Extremity: Positive for: Normal ROM, Other (+ thrill noted to right upper extremity at site of shunt). Negative for: Deformity Neurological/Psych: Positive for: Awake, Alert, Normal Tone - ECG O2 Sat by Pulse Oximetry: 95 (RA) Pulse Ox Interpretation: Normal Medical Decision Making Medical Decision [place] female with chronic kidney disease Plan: -- Labs 15:00 Case discussed with FP resident. Scribe Attestation: Documented by Siobhan Carmen, acting as a scribe for Ayde Torres MD. Provider Scribe Attestation: All medical record entries made by the Scribe were at my direction and personally dictated by me. I have reviewed the chart and agree that the record accurately reflects my personal performance of the history, physical exam, medical decision making, and the department course for this patient. I have also personally directed, reviewed, and agree with the discharge instructions and disposition. Disposition - Clinical Impression Clinical Impression: Renal failure - Patient ED Disposition Is Patient to be Admitted: Yes - Disposition Disposition Time: 15:12 Condition: STABLE Forms: [employer] (Lao) - Pt Status Changed To: Hospital Disposition Of: Inpatient - Admit Certification Admit to Inpatient:: After my assessment, the patient will require hospitalization for at least two midnights. This is because of the severity of symptoms shown, intensity of services needed, and/or the medical risk in this patient being treated as an outpatient. - POA Present On Arrival: None
[2018-08-19 15:47] LABS: INR 0.9; PROTHROMBIN TIME 10.2 Seconds (9.8-13.1)
[2018-08-19 15:49] LABS: PARTIAL THROMBOPLASTIN TIME 42.1 Seconds (25.6-37.1)
[2018-08-19 16:00] LABS: BASO % 0.5 % (0.0-2.0); EOS # 0.1 K/uL (0.0-0.7); EOS % 1.1 % (0.0-4.0); HEMOGLOBIN 10.4 g/dL (12.0-16.0); LYMPH % 20.6 % (20.0-40.0); MEAN CELL VOLUME 91.2 fl (81.0-99.0); MEAN CORPUSCULAR HEMOGLOBIN 29.6 pg (27.0-31.0); MEAN CORPUSCULAR HGB CONC 32.4 g/dL (33.0-37.0); MEAN PLATELET VOLUME 8.9 fl (7.2-11.7); MONO # 0.9 K/uL (0.0-0.8); MONO % 9.7 % (0.0-10.0); NEUT # 6.5 K/uL (1.8-7.0); NEUT % 68.1 % (50.0-75.0); RBC 3.5 Mil/uL (3.80-5.20); RED CELL DISTRIBUTION WIDTH 16.9 % (11.5-14.5); WHITE BLOOD COUNT 9.5 K/uL (4.8-10.8)
--- NOTE | 2018-08-19 16:11 | CP.PCM.HP ---
History of Present Illness - History of Present Illness History of Present Illness: This is a 78 yo female with PMH of HTN, DM, ESRD, HLD, Hypothyroidism was sent by [facility] Dr Robbins, for first time hemodylasis. Patient is receiving hemodylasis due to BUN/CR of 100/4.9 reported on her last lab 08/12/18. Otherwis e patient have no complains. She denies any confusion, N/V/D headache, chest pain, sob, abd pain, constipation, dysuria or polyuria. PCP: Dr Almendarez allergy: Naproxen, salmon PMH: as per HPI PSH: Left ankle surgery due fracture, axillary fistula insertion Social: denies smoking, drinking or drug use. ED course: Vitals 97tempt, Pulse 78, 177/75 Bp, 18 RR, 95 ox Patient is stable, will be admitted to telemetry for her first time hemodialysis Present on Admission - Present on Admission Any Indicators Present on Admission: No Past Patient History - Past Medical History & Family History Past Medical History?: Yes - Past Social History Smoking Status: Never Smoked - CARDIAC Hx Hypercholesterolemia: Yes Hx Hypertension: Yes - PULMONARY Hx Asthma: Yes ( CHILD) - NEUROLOGICAL Hx Neurological Disorder: No - HEENT Hx HEENT Problems: Yes Hx Cataracts: Yes Hx Glaucoma: Yes - RENAL Hx Chronic Kidney Disease: Yes - ENDOCRINE/METABOLIC Hx Hypothyroidism: Yes - HEMATOLOGICAL/ONCOLOGICAL Hx Anemia: Yes - INTEGUMENTARY Hx Dermatological Problems: No - MUSCULOSKELETAL/RHEUMATOLOGICAL Hx Arthritis: Yes Hx Fractures: Yes (LEFT ANKLE) - GASTROINTESTINAL Hx Gastrointestinal Disorders: No - GENITOURINARY/GYNECOLOGICAL Hx Genitourinary Disorders: No - PSYCHIATRIC Hx Psychophysiologic Disorder: No Hx Substance Use: No - SURGICAL HISTORY Hx Surgeries: Yes Hx Arteriovenous Shunt: Yes (AV SHUNT RIGHT ARM) Hx Cataract Extraction: Yes Hx Dilation and Curettage: Yes Hx Eye Surgery: Yes (GLUCOMA SURGERY-BILAT) Hx Musculoskeletal Surgery: Yes (LEFT FOOT) Hx Orthopedic Surgery: Yes (LEFT ANKLE) - ANESTHESIA Hx Anesthesia: Yes Hx Anesthesia Reactions: Yes ("too much vomiting") Hx Malignant Hyperthermia: No Meds Allergies/Adverse Reactions: Allergies Allergy/AdvReac Type Severity Reaction Status Date / Time naproxen [From Aleve] Allergy ITCHING Verified 06/20/18 06:40 salmon AdvReac Intermediate ITCHING Uncoded 05/07/18 10:27 Physical Exam - Constitutional Appears: Well, Non-toxic, No Acute Distress - Head Exam Head Exam: ATRAUMATIC, NORMAL INSPECTION, NORMOCEPHALIC - Eye Exam Eye Exam: EOMI, Normal appearance, PERRL Pupil Exam: NORMAL ACCOMODATION, PERRL - ENT Exam ENT Exam: Mucous Membranes Moist, Normal Exam - Neck Exam Neck exam: Positive for: Normal Inspection - Respiratory Exam Respiratory Exam: Clear to Auscultation Bilateral, NORMAL BREATHING PATTERN - Cardiovascular Exam Cardiovascular Exam: REGULAR RHYTHM, +S1, +S2 - GI/Abdominal Exam GI & Abdominal Exam: Normal Bowel Sounds, Soft. absent: Tenderness - Extremities Exam Additional comments: Fistula noted on Right axilla thrill noted upon palpation - Back Exam Back exam: NORMAL INSPECTION - Neurological Exam Neurological exam: Alert, CN II-XII Intact, Normal Gait, Oriented x3, Reflexes Normal - Psychiatric Exam Psychiatric exam: Normal Affect, Normal Mood - Skin Skin Exam: Dry, Intact, Normal Color, Warm Results - Vital Signs Recent Vital Signs: Last Vital Signs Temp 97 F L 08/19/18 14:19 Pulse 78 08/19/18 14:19 Resp 18 08/19/18 14:19 BP 177/75 H 08/19/18 14:19 Pulse Ox 95 08/19/18 15:31 - Labs Result Diagrams: 08/19/18 15:15 Labs: Laboratory Results - last 24 hr 08/19/18 08/19/18 15:15 15:15 WBC 9.5 RBC 3.50 L Hgb 10.4 L Hct 31.9 L MCV 91.2 MCH 29.6 MCHC 32.4 L RDW 16.9 H Plt Count 216 MPV 8.9 Neut % (Auto) 68.1 Lymph % (Auto) 20.6 [place] % (Auto) 9.7 Eos % (Auto) 1.1 Baso % (Auto) 0.5 Neut # (Auto) 6.5 Lymph # (Auto) 2.0 [place] # (Auto) 0.9 H Eos # (Auto) 0.1 Baso # (Auto) 0.0 PT 10.2 INR 0.9 APTT 42.1 H Assessment & Plan - Assessment and Plan (Free Text) Assessment: This is a 78 yo female with PMH of HTN, DM, ESRD, HLD, Hypothyroidism was sent by [facility] Dr Robbins, for first time hemodylasis. Will be admitted to telemetry for first time hemodialysis Plan ESRD BUN/CR: 100/4.9->98/4.7 Consult nephrology BMP tomorrow morning hemodylisis HTN Chronic, Uncontrolled Continue home medication Monitor blood pressure, If bp systolic <100, will Dc medication DM Chronic, Uncontrolled GLucose 266H Insulin sliding scale low carb diet Hypoglycemic control HLD Chronic Continue home medication Hypothyroidism Continue home medication DVT prophylaxis heparin Q12h SCD Diet Low carb FULL CODE
[2018-08-19 16:40] LABS: ALB/GLOB RATIO 1.2 (1.0-2.1); ALBUMIN 4.1 g/dL (3.5-5.0)
[2018-08-19] MEDS ORDERED: DARBEPOETIN ALFA IN POLYSORBAT 100 MCG SC SCH (17:00)
[2018-08-19] MEDS: Omega-3-Acid Ethyl Esters 1 GM Cap PO SCH (18:16)
[2018-08-19] MEDS ORDERED: Patient's Own Med (Cyclosporine [Restasis] 1 DROP) EACHEYE SCH (21:00)
[2018-08-20] MEDS: Levothyroxine 75 MCG TAB PO SCH (05:31)
[2018-08-20] MEDS ORDERED: Cholecalciferol 1,000 INTLU TAB PO SCH (09:00)
[2018-08-20] MEDS ORDERED: Epoetin Alfa 4000 UNIT/ML Inj IV ONE (10:51)
--- NOTE | 2018-08-20 10:51 | CP.PCM.PN ---
Subjective - Date & Time of Evaluation Date of Evaluation: 08/20/18 Time of Evaluation: 07:00 - Subjective Subjective: Patient seen and examined at bedside. No acute event overnight. Patient slept comfortable with no complain, she is only nervous about procedure otherwise shes doing oswald. ROS negative except mentioned in HPI Objective - Vital Signs/Intake and Output Vital Signs (last 24 hours): Temp Pulse Resp BP Pulse Ox 98.0 F 78 20 158/72 H 96 08/20/18 07:54 08/20/18 07:54 08/20/18 07:54 08/20/18 07:54 08/20/18 07:54 - Medications Medications: Current Medications Allopurinol (Zyloprim) 100 mg PO DAILY [facility] Ferrous Sulfate (Feosol) 325 mg PO BID [facility] Last Admin: 08/19/18 18:13 Dose: 325 mg Heparin Sodium (Porcine) (Heparin) 5,000 units SC Q12 [facility]; Protocol Last Admin: 08/19/18 23:35 Dose: 5,000 units Home Med (Cyclosporine [Restasis]) 1 drop EACHEYE Q12 [facility] Home Med (Darbepoetin Bj In Polysorbat [Aranesp]) 100 mcg SC ASDIR [facility] Hydralazine HCl (Apresoline) 100 mg PO TID [facility] Last Admin: 08/19/18 18:13 Dose: 100 mg Insulin Detemir (Levemir) 15 units SC DAILY [facility] Insulin Lispro Protam/Lispro Human (Humalog Mix 75/25) 20 units SC ACL [facility] Levothyroxine Sodium (Synthroid) 75 mcg PO DAILY@0630 [facility] Last Admin: 08/20/18 05:31 Dose: 75 mcg Losartan Potassium (Cozaar) 100 mg PO DAILY [facility] Lilxe-4-Qxpd Ethyl Esters (Lovaza) 1 gm PO BID [facility] Last Admin: 08/19/18 18:16 Dose: 1 gm Sevelamer Carbonate (Renvela) 800 mg PO TID [facility] Last Admin: 08/19/18 18:15 Dose: 800 mg Torsemide (Demadex) 20 mg PO DAILY [facility] Vitamin B Complex/Vit C/Folic Acid (Nephro-Jt) 1 tab PO DAILY [facility] - Labs Labs: 08/19/18 15:15 08/19/18 15:15 PT 10.2 Seconds (9.8-13.1) 08/19/18 15:15 INR 0.9 08/19/18 15:15 APTT 42.1 Seconds (25.6-37.1) H 08/19/18 15:15 - Constitutional Appears: Well, Non-toxic, No Acute Distress - Head Exam Head Exam: ATRAUMATIC, NORMAL INSPECTION, NORMOCEPHALIC - Eye Exam Eye Exam: EOMI, Normal appearance, PERRL Pupil Exam: NORMAL ACCOMODATION, PERRL - ENT Exam ENT Exam: Mucous Membranes Moist, Normal Exam - Neck Exam Neck Exam: Full ROM, Normal Inspection - Respiratory Exam Respiratory Exam: Clear to Ausculation Bilateral, NORMAL BREATHING PATTERN - Cardiovascular Exam Cardiovascular Exam: REGULAR RHYTHM, +S1, +S2 - GI/Abdominal Exam GI & Abdominal Exam: Soft, Normal Bowel Sounds - Extremities Exam Extremities Exam: Full ROM, Normal Inspection - Back Exam Back Exam: NORMAL INSPECTION - Neurological Exam Neurological Exam: Alert, Awake, CN II-XII Intact, Normal Gait, Oriented x3 - Psychiatric Exam Psychiatric exam: Normal Affect, Normal Mood - Skin Skin Exam: Dry, Intact, Normal Color, Warm Assessment and Plan - Assessment and Plan (Free Text) Assessment: 78 yo female with PMH of HTN, DM, ESRD, HLD, Hypothyroidism was sent by N eph[facility] Dr Robbins, for first time hemodylasis. Will be admitted to telemetry for first time hemodialysis Plan ESRD BUN/CR: 100/4.9->98/4.7 Nephro on case F/U BMP hemodylisis consent done Monitor Blood pressure HTN Chronic, controlled Continue home medication Monitor blood pressure, If bp systolic <100, will Dc medication DM Chronic, Uncontrolled GLucose 266H Insulin sliding scale low carb diet Hypoglycemic control HLD Chronic Continue home medication Hypothyroidism Continue home medication DVT prophylaxis heparin Q12h SCD Diet Low carb FULL CODE
[2018-08-20] MEDS: Omega-3-Acid Ethyl Esters 1 GM Cap PO SCH ×2 (10:53→17:24)
[2018-08-20] MEDS: Multivitamin Vitamin B Complex (Nephro-Vite) Tab PO SCH (10:54)
[2018-08-20] MEDS: Insulin Detemir 100 Units/ml Inj SC SCH (10:55)
[2018-08-20] MEDS: Insulin Lispro Mix 75/25 100 units/ml (HumaLog) 10ml SC SCH (12:46)
[2018-08-20 18:42] LABS: HEMOGLOBIN 9.5 g/dL (12.0-16.0); MEAN CELL VOLUME 91.1 fl (81.0-99.0); MEAN CORPUSCULAR HEMOGLOBIN 29.9 pg (27.0-31.0); MEAN CORPUSCULAR HGB CONC 32.9 g/dL (33.0-37.0); RBC 3.18 Mil/uL (3.80-5.20); RED CELL DISTRIBUTION WIDTH 16.5 % (11.5-14.5); WHITE BLOOD COUNT 9.1 K/uL (4.8-10.8)
[2018-08-20 21:07] LABS: HEPATITIS B SURFACE AG Negative (NEGATIVE)
--- NOTE | 2018-08-20 21:16 | CP.PCM.CON ---
History of Present Illness - History of Present Illness History of Present Illness: renal consult note 78 yo female with PMH of HTN, DM, ESRD, HLD, Hypothyroidism was sent by me from office for dialysis start. she reported uremic symptoms in office, fatigue lethargy poor appetite in offfice. labs from earlier in july showed bun of 100 PCP: Dr Almendarez allergy: Naproxen, salmon PMH: as per HPI PSH: Left ankle surgery due fracture, axillary fistula insertion Social: denies smoking, drinking or drug use. 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 [facility] Past Patient History - Past Medical History & Family History Past Medical History?: Yes - Past Social History Smoking Status: Never Smoked - CARDIAC Hx Cardiac Disorders: Yes Hx Hypercholesterolemia: Yes Hx Hypertension: Yes - PULMONARY Hx Respiratory Disorders: Yes Hx Asthma: Yes ( CHILD) - NEUROLOGICAL Hx Neurological Disorder: No - HEENT Hx HEENT Problems: Yes Hx Cataracts: Yes Hx Glaucoma: Yes - RENAL Hx Chronic Kidney Disease: Yes - ENDOCRINE/METABOLIC Hx Endocrine Disorders: Yes Hx Diabetes Mellitus Type 2: Yes Hx Hypothyroidism: Yes - HEMATOLOGICAL/ONCOLOGICAL Hx Blood Disorders: Yes Hx AIDS: Yes Hx Human Immunodeficiency Virus (HIV): No - INTEGUMENTARY Hx Dermatological Problems: No - MUSCULOSKELETAL/RHEUMATOLOGICAL Hx Musculoskeletal Disorders: Yes Hx Arthritis: Yes Hx Falls: No Hx Fractures: Yes (Left ankle) - GASTROINTESTINAL Hx Gastrointestinal Disorders: No - GENITOURINARY/GYNECOLOGICAL Hx Genitourinary Disorders: No - PSYCHIATRIC Hx Psychophysiologic Disorder: No Hx Substance Use: No - SURGICAL HISTORY Hx Surgeries: Yes Hx Arteriovenous Shunt: Yes (AV SHUNT RIGHT ARM) Hx Cataract Extraction: Yes Hx Dilation and Curettage: Yes Hx Eye Surgery: Yes (GLUCOMA SURGERY-BILAT) Hx Musculoskeletal Surgery: Yes (LEFT FOOT) Hx Orthopedic Surgery: Yes (LEFT ANKLE) - ANESTHESIA Hx Anesthesia: Yes Hx Anesthesia Reactions: Yes ("too much vomiting") Hx Malignant Hyperthermia: No Meds Allergies/Adverse Reactions: Allergies Allergy/AdvReac Type Severity Reaction Status Date / Time naproxen [From Aleve] Allergy ITCHING Verified 06/20/18 06:40 salmon AdvReac Intermediate ITCHING Uncoded 05/07/18 10:27 - Medications Medications: Current Medications Allopurinol (Zyloprim) 100 mg PO DAILY [facility] Last Admin: 08/20/18 10:51 Dose: 100 mg Ferrous Sulfate (Feosol) 325 mg PO BID [facility] Last Admin: 08/20/18 17:23 Dose: 325 mg Heparin Sodium (Porcine) (Heparin) 5,000 units SC Q12 [facility]; Protocol Last Admin: 08/20/18 10:55 Dose: 5,000 units Home Med (Cyclosporine [Restasis]) 1 drop EACHEYE Q12 [facility] Hydralazine HCl (Apresoline) 100 mg PO TID [facility] Last Admin: 08/20/18 17:21 Dose: Not Given Insulin Detemir (Levemir) 15 units SC DAILY [facility] Last Admin: 08/20/18 10:55 Dose: 15 u Insulin Lispro Protam/Lispro Human (Humalog Mix 75/25) 20 units SC ACL [facility] Last Admin: 08/20/18 12:46 Dose: 20 units Levothyroxine Sodium (Synthroid) 75 mcg PO DAILY@0630 [facility] Last Admin: 08/20/18 05:31 Dose: 75 mcg Lidocaine/Prilocaine (Lidocaine/Prilocaine 2.5%-2.5%) 1 applic TP DAILY [facility] Losartan Potassium (Cozaar) 100 mg PO DAILY [facility] Last Admin: 08/20/18 10:52 Dose: 100 mg Cvbjb-4-Xzmg Ethyl Esters (Lovaza) 1 gm PO BID [facility] Last Admin: 08/20/18 17:24 Dose: 1 gm Sevelamer Carbonate (Renvela) 800 mg PO TID [facility] Last Admin: 08/20/18 17:23 Dose: 800 mg Torsemide (Demadex) 20 mg PO DAILY [facility] Last Admin: 08/20/18 10:54 Dose: 20 mg Vitamin B Complex/Vit C/Folic Acid (Nephro-Jt) 1 tab PO DAILY [facility] Last Admin: 08/20/18 10:54 Dose: 1 tab Results - Vital Signs Recent Vital Signs: Last Vital Signs Temp 98.6 F 08/20/18 20:10 Pulse 96 H 08/20/18 20:10 Resp 18 08/20/18 20:10 BP 159/71 H 08/20/18 20:10 Pulse Ox 95 08/20/18 20:10 - Labs Result Diagrams: 08/20/18 18:16 08/19/18 15:15 Labs: Laboratory Results - last 24 hr 08/19/18 08/20/18 08/20/18 17:52 00:11 05:35 WBC RBC Hgb Hct MCV MCH MCHC RDW Plt Count POC Glucose (mg/dL) 272 H 301 H 218 H Phosphorus Hep Bs Antigen 08/20/18 08/20/18 08/20/18 10:56 11:10 12:45 WBC RBC Hgb Hct MCV MCH MCHC RDW Plt Count POC Glucose (mg/dL) 360 H 391 H Phosphorus 5.0 H Hep Bs Antigen Negative 08/20/18 08/20/18 16:18 18:16 WBC 9.1 RBC 3.18 L Hgb 9.5 L Hct 29.0 L MCV 91.1 MCH 29.9 MCHC 32.9 L RDW 16.5 H Plt Count 203 POC Glucose (mg/dL) 117 H Phosphorus Hep Bs Antigen
[2018-08-21 06:18] LABS: CALCIUM 10.7 mg/dL (8.4-10.2)
[2018-08-21] MEDS: Levothyroxine 75 MCG TAB PO SCH (06:49)
[2018-08-21] MEDS: Omega-3-Acid Ethyl Esters 1 GM Cap PO SCH ×2 (10:04→17:39)
[2018-08-21] MEDS: Multivitamin Vitamin B Complex (Nephro-Vite) Tab PO SCH (10:04)
[2018-08-21] MEDS: Insulin Detemir 100 Units/ml Inj SC SCH (10:11)
--- NOTE | 2018-08-21 11:57 | CP.PCM.PN ---
Subjective - Date & Time of Evaluation Date of Evaluation: 08/21/18 Time of Evaluation: 11:55 - Subjective Subjective: Patient in bed awake and conscious Vital signs noted to be stable No chest pain no shortness of breath no difficulty breathing Completed first hemodialysis yesterday 2 hours Objective - Vital Signs/Intake and Output Vital Signs (last 24 hours): Temp Pulse Resp BP Pulse Ox 97.6 F 100 H 18 144/75 96 08/21/18 08:15 08/21/18 08:15 08/21/18 08:15 08/21/18 08:15 08/21/18 08:15 - Medications Medications: Current Medications Allopurinol (Zyloprim) 100 mg PO DAILY [facility] Last Admin: 08/21/18 10:04 Dose: 100 mg Ferrous Sulfate (Feosol) 325 mg PO BID [facility] Last Admin: 08/21/18 10:04 Dose: 325 mg Heparin Sodium (Porcine) (Heparin) 5,000 units SC Q12 [facility]; Protocol Last Admin: 08/21/18 10:04 Dose: 5,000 units Home Med (Cyclosporine [Restasis]) 1 drop EACHEYE Q12 [facility] Hydralazine HCl (Apresoline) 100 mg PO TID [facility] Last Admin: 08/21/18 10:03 Dose: 100 mg Insulin Detemir (Levemir) 15 units SC DAILY [facility] Last Admin: 08/21/18 10:11 Dose: 15 u Insulin Lispro Protam/Lispro Human (Humalog Mix 75/25) 20 units SC ACL [facility] Last Admin: 08/20/18 12:46 Dose: 20 units Levothyroxine Sodium (Synthroid) 75 mcg PO DAILY@0630 [facility] Last Admin: 08/21/18 06:49 Dose: 75 mcg Lidocaine/Prilocaine (Lidocaine/Prilocaine 2.5%-2.5%) 1 applic TP DAILY [facility] Losartan Potassium (Cozaar) 100 mg PO DAILY [facility] Last Admin: 08/21/18 10:03 Dose: 100 mg Svens-0-Rikm Ethyl Esters (Lovaza) 1 gm PO BID [facility] Last Admin: 08/21/18 10:04 Dose: 1 gm Sevelamer Carbonate (Renvela) 800 mg PO TID [facility] Last Admin: 08/21/18 10:04 Dose: 800 mg Torsemide (Demadex) 20 mg PO DAILY [facility] Last Admin: 08/21/18 10:04 Dose: 20 mg Vitamin B Complex/Vit C/Folic Acid (Nephro-Jt) 1 tab PO DAILY [facility] Last Admin: 08/21/18 10:04 Dose: 1 tab - Labs Labs: 08/20/18 18:16 08/21/18 05:30 PT 10.2 Seconds (9.8-13.1) 08/19/18 15:15 INR 0.9 08/19/18 15:15 APTT 42.1 Seconds (25.6-37.1) H 08/19/18 15:15 - Constitutional Appears: No Acute Distress - Eye Exam Eye Exam: Conjunctival injection - ENT Exam ENT Exam: Mucous Membranes Moist - Neck Exam Neck Exam: absent: Lymphadenopathy - Respiratory Exam Respiratory Exam: NORMAL BREATHING PATTERN. absent: Chest Wall Tenderness, Rhonchi - Cardiovascular Exam Cardiovascular Exam: absent: Gallop, JVD, Rubs - GI/Abdominal Exam GI & Abdominal Exam: Soft, Normal Bowel Sounds - Extremities Exam Extremities Exam: absent: Calf Tenderness - Back Exam Back Exam: absent: CVA tenderness (L), CVA tenderness (R) - Neurological Exam Neurological Exam: Alert - Psychiatric Exam Psychiatric exam: Normal Affect - Skin Skin Exam: absent: Cyanosis Assessment and Plan (1) Chronic kidney disease with end stage renal failure on dialysis Assessment & Plan: End-stage renal disease completed first hemodialysis yesterday for 2 hours With a baseline kidney disease on kidney biopsy reported to be IgA nephropathy previously Scheduled to have additional dialysis today. Hypertension Hypercalcemia Anemia History of hypothyroidism Plan Continue hemodialysis 3 times a week Call social service agency director to arrange for outpatient hemodialysis at [facility] EPO for the anemia No calcium supplement DC calcitriol because of the hypercalcemia Phosphorus binders such as Renagel or Renvela Status: Acute
[2018-08-21] MEDS ORDERED: Multivitamin Vitamin B Complex (Nephro-Vite) Tab PO SCH (12:15)
[2018-08-21] MEDS: Insulin Lispro Mix 75/25 100 units/ml (HumaLog) 10ml SC SCH (12:33)
[2018-08-21] MEDS: Lidocaine/Prilocaine CREAM 5GM TP SCH (12:36)
--- NOTE | 2018-08-21 13:56 | CP.PCM.PN ---
Subjective - Date & Time of Evaluation Date of Evaluation: 08/21/18 Time of Evaluation: 07:00 - Subjective Subjective: Pt seen and examined at bedside with no acute event. Patient went to HD yesterday but due to unmatured fistula, only 20 min was done and blood got coagulated. Otherwise patient denies any chest pain, sob, abd pain, diarrhea, constipation. Objective - Vital Signs/Intake and Output Vital Signs (last 24 hours): Temp Pulse Resp BP Pulse Ox 97.3 F L 101 H 18 120/67 97 08/21/18 12:01 08/21/18 12:01 08/21/18 12:08/21/18 12:01 08/21/18 12:01 - Medications Medications: Current Medications Allopurinol (Zyloprim) 100 mg PO DAILY [facility] Last Admin: 08/21/18 10:04 Dose: 100 mg Ferrous Sulfate (Feosol) 325 mg PO BID [facility] Last Admin: 08/21/18 10:04 Dose: 325 mg Heparin Sodium (Porcine) (Heparin) 5,000 units SC Q12 [facility]; Protocol Last Admin: 08/21/18 10:04 Dose: 5,000 units Home Med (Cyclosporine [Restasis]) 1 drop EACHEYE Q12 [facility] Hydralazine HCl (Apresoline) 100 mg PO TID [facility] Last Admin: 08/21/18 12:32 Dose: 100 mg Insulin Detemir (Levemir) 15 units SC DAILY [facility] Last Admin: 08/21/18 10:11 Dose: 15 u Insulin Lispro Protam/Lispro Human (Humalog Mix 75/25) 20 units SC ACL [facility] Last Admin: 08/21/18 12:33 Dose: 20 units Levothyroxine Sodium (Synthroid) 75 mcg PO DAILY@0630 [facility] Last Admin: 08/21/18 06:49 Dose: 75 mcg Lidocaine/Prilocaine (Lidocaine/Prilocaine 2.5%-2.5%) 1 applic TP DAILY [facility] Last Admin: 08/21/18 12:36 Dose: 1 applic Losartan Potassium (Cozaar) 100 mg PO DAILY [facility] Last Admin: 08/21/18 10:03 Dose: 100 mg Folns-7-Fwjl Ethyl Esters (Lovaza) 1 gm PO BID [facility] Last Admin: 08/21/18 10:04 Dose: 1 gm Sevelamer Carbonate (Renvela) 800 mg PO TID [facility] Last Admin: 08/21/18 12:33 Dose: 800 mg Vitamin B Complex/Vit C/Folic Acid (Nephro-Jt) 1 tab PO DAILY [facility] Last Admin: 08/21/18 10:04 Dose: 1 tab Vitamin B Complex/Vit C/Folic Acid (Nephro-Jt) 1 tab PO DAILY [facility] - Labs Labs: 08/20/18 18:16 08/21/18 05:30 PT 10.2 Seconds (9.8-13.1) 08/19/18 15:15 INR 0.9 08/19/18 15:15 APTT 42.1 Seconds (25.6-37.1) H 08/19/18 15:15 - Constitutional Appears: Well, Non-toxic, No Acute Distress - Head Exam Head Exam: ATRAUMATIC, NORMAL INSPECTION, NORMOCEPHALIC - Eye Exam Eye Exam: EOMI, Normal appearance, PERRL Pupil Exam: NORMAL ACCOMODATION, PERRL - ENT Exam ENT Exam: Mucous Membranes Moist, Normal Exam - Neck Exam Neck Exam: Full ROM, Normal Inspection - Respiratory Exam Respiratory Exam: Clear to Ausculation Bilateral, NORMAL BREATHING PATTERN - Cardiovascular Exam Cardiovascular Exam: REGULAR RHYTHM, +S1, +S2 - GI/Abdominal Exam GI & Abdominal Exam: Soft, Normal Bowel Sounds - Extremities Exam Extremities Exam: Full ROM, Normal Capillary Refill, Normal Inspection - Back Exam Back Exam: NORMAL INSPECTION - Neurological Exam Neurological Exam: Alert, Awake, CN II-XII Intact, Normal Gait, Oriented x3 - Psychiatric Exam Psychiatric exam: Normal Affect, Normal Mood - Skin Skin Exam: Dry, Intact, Normal Color, Warm Assessment and Plan - Assessment and Plan (Free Text) Assessment: 78 yo female with PMH of HTN, DM, ESRD, HLD, Hypothyroidism was sent by Bottle As[employer]er Dr Robbins, for first time hemodylasis. Admitted to telemetry for first time hemodialysis Plan ESRD BUN/CR: 100/4.9->98/4.7 Nephro on case hemodylisis consent done First hemodylisis was unsuccessful due to unmatured fistula [place] consulted for Permanent cath Monitor Blood pressure NPO Will do hemodylisis tomorrow after cath placed HTN Chronic, controlled Continue home medication Monitor blood pressure, If bp systolic <100, will Dc medication DM Chronic, Uncontrolled GLucose 266H Insulin sliding scale low carb diet Hypoglycemic control HLD Chronic Continue home medication Hypothyroidism Continue home medication DVT prophylaxis hold heparin morning SCD Diet Low carb FULL CODE
[2018-08-21] MEDS ORDERED: POLYETHYLENE GLYCOL 3350 17 GM/Dose PACKET PO ONE (21:01)
[2018-08-22 05:40] LABS: HEMOGLOBIN 9.2 g/dL (12.0-16.0); MEAN CELL VOLUME 92.1 fl (81.0-99.0); MEAN CORPUSCULAR HEMOGLOBIN 29.4 pg (27.0-31.0); MEAN CORPUSCULAR HGB CONC 31.9 g/dL (33.0-37.0); RBC 3.12 Mil/uL (3.80-5.20); RED CELL DISTRIBUTION WIDTH 16.5 % (11.5-14.5); WHITE BLOOD COUNT 10.5 K/uL (4.8-10.8)
[2018-08-22] MEDS: Levothyroxine 75 MCG TAB PO SCH (05:48)
[2018-08-22 05:50] LABS: PROTHROMBIN TIME 10.8 Seconds (9.8-13.1)
[2018-08-22 05:53] LABS: ALB/GLOB RATIO 1.1 (1.0-2.1); ALBUMIN 3.4 g/dL (3.5-5.0); CALCIUM 10.4 mg/dL (8.4-10.2)
[2018-08-22] MEDS: Multivitamin Vitamin B Complex (Nephro-Vite) Tab PO SCH (09:54)
[2018-08-22] MEDS: Omega-3-Acid Ethyl Esters 1 GM Cap PO SCH ×2 (09:54→17:43)
[2018-08-22] MEDS: Lidocaine/Prilocaine CREAM 5GM TP SCH (09:57)
[2018-08-22] MEDS: Insulin Detemir 100 Units/ml Inj SC SCH (09:57)
--- NOTE | 2018-08-22 10:21 | CP.PCM.PN ---
Subjective - Date & Time of Evaluation Date of Evaluation: 08/22/18 Time of Evaluation: 10:21 - Subjective Subjective: Patient is awake and conscious not in acute distress. Vital signs stable No nausea no vomiting Objective - Vital Signs/Intake and Output Vital Signs (last 24 hours): Temp Pulse Resp BP Pulse Ox 98 F 90 18 113/63 95 08/22/18 08:03 08/22/18 08:03 08/22/18 08:03 08/22/18 08:03 08/22/18 08:03 - Medications Medications: Current Medications Acetaminophen (Tylenol 325mg Tab) 650 mg PO Q6 PRN PRN Reason: Headache Last Admin: 08/21/18 20:45 Dose: 650 mg Allopurinol (Zyloprim) 100 mg PO DAILY [facility] Last Admin: 08/22/18 09:54 Dose: 100 mg Ferrous Sulfate (Feosol) 325 mg PO BID [facility] Last Admin: 08/22/18 09:54 Dose: 325 mg Heparin Sodium (Porcine) (Heparin) 5,000 units SC Q12 [facility]; Protocol Last Admin: 08/22/18 09:54 Dose: 5,000 units Hydralazine HCl (Apresoline) 100 mg PO TID [facility] Last Admin: 08/22/18 09:54 Dose: 100 mg Insulin Detemir (Levemir) 15 units SC DAILY [facility] Last Admin: 08/22/18 09:57 Dose: Not Given Insulin Lispro Protam/Lispro Human (Humalog Mix 75/25) 20 units SC ACL [facility] Last Admin: 08/21/18 12:33 Dose: 20 units Levothyroxine Sodium (Synthroid) 75 mcg PO DAILY@0630 [facility] Last Admin: 08/22/18 05:48 Dose: 75 mcg Lidocaine/Prilocaine (Lidocaine/Prilocaine 2.5%-2.5%) 1 applic TP DAILY [facility] Last Admin: 08/22/18 09:57 Dose: 1 applic Losartan Potassium (Cozaar) 100 mg PO DAILY [facility] Last Admin: 08/22/18 09:54 Dose: 100 mg Oznqj-4-Xnxp Ethyl Esters (Lovaza) 1 gm PO BID [facility] Last Admin: 08/22/18 09:54 Dose: 1 gm Sevelamer Carbonate (Renvela) 800 mg PO TID [facility] Last Admin: 08/22/18 09:54 Dose: 800 mg Vitamin B Complex/Vit C/Folic Acid (Nephro-Jt) 1 tab PO DAILY [facility] Last Admin: 08/22/18 09:54 Dose: 1 tab - Labs Labs: 08/22/18 05:15 08/22/18 05:15 PT 10.8 Seconds (9.8-13.1) 08/22/18 05:15 INR 1.0 08/22/18 05:15 APTT 42.1 Seconds (25.6-37.1) H 08/19/18 15:15 - Constitutional Appears: No Acute Distress - Eye Exam Eye Exam: Conjunctival injection - ENT Exam ENT Exam: Mucous Membranes Moist - Neck Exam Neck Exam: absent: Lymphadenopathy - Respiratory Exam Respiratory Exam: NORMAL BREATHING PATTERN. absent: Chest Wall Tenderness - Cardiovascular Exam Cardiovascular Exam: absent: Gallop, JVD, Rubs - GI/Abdominal Exam GI & Abdominal Exam: Soft, Normal Bowel Sounds - Extremities Exam Extremities Exam: absent: Calf Tenderness - Back Exam Back Exam: absent: CVA tenderness (L), CVA tenderness (R) - Neurological Exam Neurological Exam: Alert - Psychiatric Exam Psychiatric exam: Normal Affect - Skin Skin Exam: absent: Cyanosis Assessment and Plan (1) Chronic kidney disease with end stage renal failure on dialysis Assessment & Plan: End-stage renal disease Mild function of AV fistula With a baseline kidney disease on kidney biopsy reported to be IgA nephropathy and diabetic nephropathy previously Hypertension Diabetes mellitus Hypercalcemia trending down and improving Anemia History of hypothyroidism Plan Hemodialysis was not done yesterday because of the hematoma noted at the AV fistula side and it was difficult to cannulate the dialysis nurse apparently and it was put on hold. Going for permacath and hemodialysis to follow Doppler of the AV fistula with ultrasound Ordered TSH and PTH if not done yet Continue phosphorus binders Patient will be referred to see Dr. Cruz her vascular for evaluation the AV fistula . Patient need glycemic control Status: Acute
[2018-08-22] MEDS: Insulin Lispro Mix 75/25 100 units/ml (HumaLog) 10ml SC SCH (10:50)
[2018-08-22] MEDS ORDERED: Midazolam 2 MG/2 ML VIAL ONE (12:26)
[2018-08-22] MEDS ORDERED: Lidocaine Hydrochloride 1% 10 ML ONE (12:33)
[2018-08-22] MEDS ORDERED: Iodixanol 320 mg/ml 50 ml Sol IV ONE (12:56)
[2018-08-22] MEDS ORDERED: Iodixanol 320 MG/ML 100 ML BOTTLE IV ONE (12:57)
[2018-08-22] MEDS: HYDROmorphone 0.5 mg/0.5 ml ISec IVP PRN ×2 (13:15→14:50)
--- NOTE | 2018-08-22 15:20 | CP.PCM.PN ---
Subjective - Date & Time of Evaluation Date of Evaluation: 08/22/18 Time of Evaluation: 08:00 - Subjective Subjective: Patient is seen and examined at bedside. No acute event overnight. Patient sent to IR for cath placement. Otherwise patient had no complains today. She denies chest pain, sob, abd pain diarrhea, constipation, dysuria or polyuria. Objective - Vital Signs/Intake and Output Vital Signs (last 24 hours): Temp Pulse Resp BP Pulse Ox 97.6 F 92 H 18 121/66 95 08/22/18 14:40 08/22/18 14:40 08/22/18 14:40 08/22/18 14:40 08/22/18 14:40 - Medications Medications: Current Medications Acetaminophen (Tylenol 325mg Tab) 650 mg PO Q6 PRN PRN Reason: Headache Last Admin: 08/21/18 20:45 Dose: 650 mg Allopurinol (Zyloprim) 100 mg PO DAILY [facility] Last Admin: 08/22/18 09:54 Dose: 100 mg Ferrous Sulfate (Feosol) 325 mg PO BID [facility] Last Admin: 08/22/18 09:54 Dose: 325 mg Heparin Sodium (Porcine) (Heparin) 5,000 units SC Q12 [facility]; Protocol Last Admin: 08/22/18 09:54 Dose: 5,000 units Hydralazine HCl (Apresoline) 100 mg PO TID [facility] Last Admin: 08/22/18 13:12 Dose: Not Given Insulin Detemir (Levemir) 15 units SC DAILY [facility] Last Admin: 08/22/18 09:57 Dose: Not Given Insulin Lispro Protam/Lispro Human (Humalog Mix 75/25) 20 units SC ACL [facility] Last Admin: 08/22/18 10:50 Dose: Not Given Levothyroxine Sodium (Synthroid) 75 mcg PO DAILY@0630 [facility] Last Admin: 08/22/18 05:48 Dose: 75 mcg Lidocaine/Prilocaine (Lidocaine/Prilocaine 2.5%-2.5%) 1 applic TP DAILY [facility] Last Admin: 08/22/18 09:57 Dose: 1 applic Losartan Potassium (Cozaar) 100 mg PO DAILY [facility] Last Admin: 08/22/18 09:54 Dose: 100 mg Dyshr-0-Rmyr Ethyl Esters (Lovaza) 1 gm PO BID [facility] Last Admin: 08/22/18 09:54 Dose: 1 gm Sevelamer Carbonate (Renvela) 800 mg PO TID [facility] Last Admin: 08/22/18 13:12 Dose: Not Given Vitamin B Complex/Vit C/Folic Acid (Nephro-Jt) 1 tab PO DAILY [facility] Last Admin: 08/22/18 09:54 Dose: 1 tab - Labs Labs: 08/22/18 05:15 08/22/18 05:15 PT 10.8 Seconds (9.8-13.1) 08/22/18 05:15 INR 1.0 08/22/18 05:15 APTT 42.1 Seconds (25.6-37.1) H 08/19/18 15:15 - Constitutional Appears: Well, Non-toxic, No Acute Distress - Head Exam Head Exam: ATRAUMATIC, NORMAL INSPECTION, NORMOCEPHALIC - Eye Exam Eye Exam: EOMI, Normal appearance, PERRL Pupil Exam: NORMAL ACCOMODATION, PERRL - ENT Exam ENT Exam: Mucous Membranes Moist, Normal Exam - Neck Exam Neck Exam: Full ROM, Normal Inspection - Respiratory Exam Respiratory Exam: Clear to Ausculation Bilateral, NORMAL BREATHING PATTERN - Cardiovascular Exam Cardiovascular Exam: REGULAR RHYTHM, +S1, +S2 - GI/Abdominal Exam GI & Abdominal Exam: Soft, Normal Bowel Sounds - Extremities Exam Extremities Exam: Full ROM, Normal Capillary Refill, Normal Inspection - Back Exam Back Exam: NORMAL INSPECTION - Neurological Exam Neurological Exam: Alert, Awake, CN II-XII Intact, Normal Gait, Oriented x3 - Psychiatric Exam Psychiatric exam: Normal Affect, Normal Mood - Skin Skin Exam: Dry, Intact, Normal Color, Warm Assessment and Plan - Assessment and Plan (Free Text) Assessment: 78 yo female with PMH of HTN, DM, ESRD, HLD, Hypothyroidism was sent by Chief Marketing Officer Dr Robbins, for first time hemodylasis. Admitted to telemetry for first time hemodialysis. Plan ESRD BUN/CR: 100/4.9->98/4.7-> 109/5.0 Nephro on case hemodylisis consent done First hemodylisis was unsuccessful due to unmatured fistula Cath placed today Will hemodialysis later today. Monitor Blood pressure F/U Ferritin, hep B, HA1C, Iron/TIBC, Cr. total protein HTN Chronic, controlled Continue home medication Monitor blood pressure, If bp systolic <100, will Dc medication DM Chronic, better controlled GLucose 177H Insulin sliding scale low carb diet Hypoglycemic control HLD Chronic Continue home medication Hypothyroidism Continue home medication DVT prophylaxis heparin q12h SCD Diet Low carb FULL CODE
[2018-08-22 21:02] LABS: HEPATITIS B SURFACE AG Negative (NEGATIVE)
[2018-08-23] MEDS: Levothyroxine 75 MCG TAB PO SCH (05:33)
[2018-08-23 06:28] LABS: CALCIUM 9.5 mg/dL (8.4-10.2)
[2018-08-23] MEDS: Multivitamin Vitamin B Complex (Nephro-Vite) Tab PO SCH (10:11)
[2018-08-23] MEDS: Insulin Detemir 100 Units/ml Inj SC SCH (10:13)
[2018-08-23] MEDS: Omega-3-Acid Ethyl Esters 1 GM Cap PO SCH ×2 (10:13→17:12)
[2018-08-23] MEDS: Lidocaine/Prilocaine CREAM 5GM TP SCH ×2 (10:23→10:25)
--- NOTE | 2018-08-23 11:52 | VASCULAR ---
PROCEDURE: Date of procedure: 08/23/2018 Procedure: 1. Placement of left IJ tunneled hemodialysis catheter, CPT 39863 2. Super venacava venogram. Medications: 8CC 1 percent lidocaine, IV sedation and physiologic monitoring performed by the anesthesiologist. HISTORY: Renal failure requiring hemodialysis TECHNIQUE: Following informed consent and procedure time-out, the patient was placed supine on the interventional table and the skin was marked. A limited ultrasound patient's left neck showed a patent compressible right internal jugular vein. Under direct ultrasound guidance, the right internal jugular vein was accessed with micropuncture technique and a guidewire was advanced under fluoroscopic guidance into the subclavian vein.. A superior vena cavagram was then performed to rule out any obstruction or aberrant anatomy as a guidewire could not be advanced into the SVC. An image documenting ultrasound guidance for vascular access was permanently saved. Superior vena cavagram is normal. There is no stenosis or obstruction. A guidewire was then advanced into the SVC. A 23 centimeter cuff to tip hemodialysis catheter was then tunneled under the skin and hold the venotomy site. The venotomy was then serially dilated to accommodate the peel-away sheath. The hemodialysis catheter was then advanced through a peel-away sheath. The catheter is positioned with tip in the superior vena cava confirm with fluoroscopic image. The catheter was tested and has adequate blood flow for hemodialysis. The catheter was flushed and locked with heparin per specified amount. The catheter secured to the skin with a 0 silk suture. IMPRESSION: Placement of left tunneled hemodialysis 23-cm cuff-to-tip catheter The catheter tip is confirmed with spot radiograph and is in the superior vena cava. The catheter is functional and ready for use.
[2018-08-23] MEDS: Insulin Lispro Mix 75/25 100 units/ml (HumaLog) 10ml SC SCH (11:54)
--- NOTE | 2018-08-23 12:04 | CP.PCM.PN ---
Subjective - Date & Time of Evaluation Date of Evaluation: 08/23/18 Time of Evaluation: 07:30 - Subjective Subjective: Patient seen and examined at bedside today. No acute event overnight. S/P hemodylasis. Patient have no complains today. She was able to sleep with no distress. HD was not completed but have improved her BUN/Cr, she will receive another HD on 08/24/18. Otherwise patient denies any dizziness, chest pain, sob, abd pain, diarrhea constipation dysuria or polyuria. Vitals were within normal limit, no hypertension reported Objective - Vital Signs/Intake and Output Vital Signs (last 24 hours): Temp Pulse Resp BP Pulse Ox 98 F 92 H 18 123/65 96 08/23/18 08:00 08/23/18 12:02 08/23/18 08:00 08/23/18 12:02 08/23/18 08:00 - Medications Medications: Current Medications Acetaminophen (Tylenol 325mg Tab) 650 mg PO Q6 PRN PRN Reason: Headache Last Admin: 08/23/18 05:34 Dose: 650 mg Allopurinol (Zyloprim) 100 mg PO DAILY [facility] Last Admin: 08/23/18 10:44 Dose: 100 mg Ferrous Sulfate (Feosol) 325 mg PO BID [facility] Last Admin: 08/23/18 10:12 Dose: 325 mg Heparin Sodium (Porcine) (Heparin) 5,000 units SC Q12 [facility]; Protocol Last Admin: 08/23/18 10:12 Dose: 5,000 units Hydralazine HCl (Apresoline) 100 mg PO TID [facility] Last Admin: 08/23/18 12:02 Dose: 100 mg Insulin Detemir (Levemir) 15 units SC DAILY [facility] Last Admin: 08/23/18 10:13 Dose: 15 u Insulin Lispro Protam/Lispro Human (Humalog Mix 75/25) 20 units SC ACL [facility] Last Admin: 08/23/18 11:54 Dose: 20 units Levothyroxine Sodium (Synthroid) 75 mcg PO DAILY@0630 [facility] Last Admin: 08/23/18 05:33 Dose: 75 mcg Lidocaine/Prilocaine (Lidocaine/Prilocaine 2.5%-2.5%) 1 applic TP DAILY [facility] Last Admin: 08/23/18 10:25 Dose: Not Given Losartan Potassium (Cozaar) 100 mg PO DAILY [facility] Last Admin: 08/23/18 10:11 Dose: 100 mg Mgckb-7-Nnly Ethyl Esters (Lovaza) 1 gm PO BID [facility] Last Admin: 08/23/18 10:13 Dose: 1 gm Sevelamer Carbonate (Renvela) 800 mg PO TID [facility] Last Admin: 08/23/18 12:02 Dose: 800 mg Vitamin B Complex/Vit C/Folic Acid (Nephro-Jt) 1 tab PO DAILY [facility] Last Admin: 08/23/18 10:11 Dose: 1 tab - Labs Labs: 08/22/18 05:15 08/23/18 05:05 PT 10.8 Seconds (9.8-13.1) 08/22/18 05:15 INR 1.0 08/22/18 05:15 APTT 42.1 Seconds (25.6-37.1) H 08/19/18 15:15 - Constitutional Appears: Well, Non-toxic, No Acute Distress - Head Exam Head Exam: ATRAUMATIC, NORMAL INSPECTION, NORMOCEPHALIC - Eye Exam Eye Exam: EOMI, Normal appearance, PERRL Pupil Exam: NORMAL ACCOMODATION, PERRL - ENT Exam ENT Exam: Mucous Membranes Moist, Normal Exam - Neck Exam Neck Exam: Full ROM, Normal Inspection - Respiratory Exam Respiratory Exam: Clear to Ausculation Bilateral, NORMAL BREATHING PATTERN - Cardiovascular Exam Cardiovascular Exam: REGULAR RHYTHM, +S1, +S2 - GI/Abdominal Exam GI & Abdominal Exam: Soft, Normal Bowel Sounds - Extremities Exam Extremities Exam: Full ROM, Normal Capillary Refill, Normal Inspection - Back Exam Back Exam: NORMAL INSPECTION - Neurological Exam Neurological Exam: Alert, Awake, CN II-XII Intact, Normal Gait, Oriented x3 - Psychiatric Exam Psychiatric exam: Normal Affect, Normal Mood - Skin Skin Exam: Dry, Intact, Normal Color, Warm Assessment and Plan - Assessment and Plan (Free Text) Assessment: 78 yo female with PMH of HTN, DM, ESRD, HLD, Hypothyroidism was sent by [employer] Dr Robbins, for first time hemodylasis. Admitted to telemetry for first time hemodialysis. Plan ESRD BUN/CR: 100/4.9->98/4.7-> 109/5.0-> 58/3.6 Nephro on case hemodylisis consent done Cath placed and functional S/p hemodylisis Monitor Blood pressure Heb B negative Heb Bs negative ( need vaccination) total ferritin WNL F/U Iron/TIBC, Cr. total protein HTN Chronic, controlled Continue home medication Monitor blood pressure, If bp systolic <100, will Dc medication DM Chronic, uncontrolled HA1C 8.0 GLucose 158H Insulin sliding scale low carb diet Hypoglycemic control HLD Chronic Continue home medication Hypothyroidism Continue home medication DVT prophylaxis heparin q12h SCD Diet Low carb FULL CODE
--- NOTE | 2018-08-23 14:50 | CP.PCM.PN ---
Subjective - Date & Time of Evaluation Date of Evaluation: 08/23/18 Time of Evaluation: 14:51 - Subjective Subjective: Patient awake and conscious she appears to be comfortable no nausea no vomiting. Vital signs stable. No chest pain no shortness of breath Objective - Vital Signs/Intake and Output Vital Signs (last 24 hours): Temp Pulse Resp BP Pulse Ox 98.1 F 92 H 18 123/65 96 08/23/18 12:07 08/23/18 12:07 08/23/18 12:07 08/23/18 12:07 08/23/18 12:07 - Medications Medications: Current Medications Acetaminophen (Tylenol 325mg Tab) 650 mg PO Q6 PRN PRN Reason: Headache Last Admin: 08/23/18 05:34 Dose: 650 mg Allopurinol (Zyloprim) 100 mg PO DAILY [facility] Last Admin: 08/23/18 10:44 Dose: 100 mg Ferrous Sulfate (Feosol) 325 mg PO BID [facility] Last Admin: 08/23/18 10:12 Dose: 325 mg Heparin Sodium (Porcine) (Heparin) 5,000 units SC Q12 [facility]; Protocol Last Admin: 08/23/18 10:12 Dose: 5,000 units Hydralazine HCl (Apresoline) 100 mg PO TID [facility] Last Admin: 08/23/18 12:02 Dose: 100 mg Insulin Detemir (Levemir) 15 units SC DAILY [facility] Last Admin: 08/23/18 10:13 Dose: 15 u Insulin Lispro Protam/Lispro Human (Humalog Mix 75/25) 20 units SC ACL [facility] Last Admin: 08/23/18 11:54 Dose: 20 units Levothyroxine Sodium (Synthroid) 75 mcg PO DAILY@0630 [facility] Last Admin: 08/23/18 05:33 Dose: 75 mcg Lidocaine/Prilocaine (Lidocaine/Prilocaine 2.5%-2.5%) 1 applic TP DAILY [facility] Last Admin: 08/23/18 10:25 Dose: Not Given Losartan Potassium (Cozaar) 100 mg PO DAILY [facility] Last Admin: 08/23/18 10:11 Dose: 100 mg Tpupj-3-Usvy Ethyl Esters (Lovaza) 1 gm PO BID [facility] Last Admin: 08/23/18 10:13 Dose: 1 gm Sevelamer Carbonate (Renvela) 800 mg PO TID [facility] Last Admin: 08/23/18 12:02 Dose: 800 mg Vitamin B Complex/Vit C/Folic Acid (Nephro-Jt) 1 tab PO DAILY [facility] Last Admin: 08/23/18 10:11 Dose: 1 tab - Labs Labs: 08/22/18 05:15 08/23/18 05:05 PT 10.8 Seconds (9.8-13.1) 08/22/18 05:15 INR 1.0 08/22/18 05:15 APTT 42.1 Seconds (25.6-37.1) H 08/19/18 15:15 - Constitutional Appears: No Acute Distress - Eye Exam Eye Exam: Conjunctival injection - ENT Exam ENT Exam: Mucous Membranes Moist - Neck Exam Neck Exam: absent: Lymphadenopathy - Respiratory Exam Respiratory Exam: absent: Chest Wall Tenderness - Cardiovascular Exam Cardiovascular Exam: absent: Gallop, JVD, Rubs - GI/Abdominal Exam GI & Abdominal Exam: Soft, Normal Bowel Sounds - Extremities Exam Extremities Exam: absent: Calf Tenderness - Back Exam Back Exam: absent: CVA tenderness (L), CVA tenderness (R) - Neurological Exam Neurological Exam: Alert - Psychiatric Exam Psychiatric exam: Normal Affect - Skin Skin Exam: absent: Cyanosis Assessment and Plan (1) Chronic kidney disease with end stage renal failure on dialysis Assessment & Plan: End-stage renal disease Ecchymosis with some bruises around the AV fistula although it has good bruit With a baseline kidney disease on kidney biopsy reported to be IgA nephropathy and diabetic nephropathy previously Hypertension Diabetes mellitus Hypercalcemia trending down and improving Anemia History of hypothyroidism Plan Continue hemodialysis for tomorrow and TTS. Through left subclavian permacath Patient to see Dr. Cruz outpatient for the fistula Doppler of the fistula if it is not done by now it could be done as outpatient if the patient is leaving tomorrow. Status: Acute
--- NOTE | 2018-08-23 15:04 | US ---
Date of service: 08/23/2018 PROCEDURE: Duplex sonography hemodialysis access right upper extremity. HISTORY: evaluation of AV fistula COMPARISON: 04/27/2018. Vessel mapping mode Lizy is access bilateral upper extremities. TECHNIQUE: Standard protocol for this study/examination. FINDINGS: Documentation of AV fistula. Proximally compression, augmentation and phasicity documented from the brachial vein to the right internal jugular vein. Distally cephalad flow through the ulnar and radial arteries. IMPRESSION: Patent AV fistula. Documentation of proximal and distal flow as described above.
[2018-08-23] MEDS ORDERED: Dextrose 50% SYRINGE Inj (50 ml) IV PRN (16:09)
[2018-08-23] MEDS ORDERED: Glucagon Recombinant 1 mg Inj IM PRN (16:09)
[2018-08-23] MEDS: Insulin Lispro (humaLOG) 100 Units/ml Inj SC SCH ×2 (17:11→22:42)
[2018-08-23 20:03] VITALS: RESP 18
[2018-08-24 06:41] LABS: CALCIUM 9.4 mg/dL (8.4-10.2)
[2018-08-24] MEDS: Levothyroxine 75 MCG TAB PO SCH (06:48)
[2018-08-24] MEDS: Insulin Lispro (humaLOG) 100 Units/ml Inj SC SCH ×3 (07:50→16:42)
[2018-08-24] MEDS: Insulin Detemir 100 Units/ml Inj SC SCH (09:22)
[2018-08-24] MEDS: Omega-3-Acid Ethyl Esters 1 GM Cap PO SCH (09:24)
[2018-08-24] MEDS: Multivitamin Vitamin B Complex (Nephro-Vite) Tab PO SCH (09:25)
[2018-08-24] MEDS: Lidocaine/Prilocaine CREAM 5GM TP SCH (09:53)
[2018-08-24] MEDS ORDERED: Lidocaine/Prilocaine CREAM 5GM TP PRN (10:00)
[2018-08-24] MEDS: Insulin Lispro Mix 75/25 100 units/ml (HumaLog) 10ml SC SCH (13:21)
--- NOTE | 2018-08-24 14:26 | CP.PCM.DIS ---
<Tawanda Morrison - Last Filed: 08/24/18 19:23> Provider - Provider Date of Admission: 08/19/18 15:12 Attending physician: Pebbles Hunt MD Consults: 08/19/18 15:22 Nephrology Consult Stat Comment: Consulting Provider: Arnav Robbins Consulting Physician: Arnav Robbins Reason for Consult: RF 08/20/18 00:40 Pastoral Care Referral Routine Comment: Physician Instructions: Reason For Exam: new admission Time Spent in preparation of Discharge (in minutes): 37 Diagnosis - Discharge Diagnosis (1) Chronic kidney disease with end stage renal failure on dialysis Status: Acute (2) Diabetes mellitus Status: Acute (3) Hypertension Status: Acute (4) Hypothyroidism Status: Acute (5) Hyperlipemia Status: Acute Hospital Course - Lab Results Lab Results: Most Recent Lab Values WBC 10.5 K/uL (4.8-10.8) 08/22/18 05:15 RBC 3.12 Mil/uL (3.80-5.20) L 08/22/18 05:15 Hgb 9.2 g/dL (12.0-16.0) L 08/22/18 05:15 Hct 28.7 % (34.0-47.0) L 08/22/18 05:15 MCV 92.1 fl (81.0-99.0) 08/22/18 05:15 MCH 29.4 pg (27.0-31.0) 08/22/18 05:15 MCHC 31.9 g/dL (33.0-37.0) L 08/22/18 05:15 RDW 16.5 % (11.5-14.5) H 08/22/18 05:15 Plt Count 195 K/uL (130-400) 08/22/18 05:15 MPV 8.9 fl (7.2-11.7) 08/19/18 15:15 Neut % (Auto) 68.1 % (50.0-75.0) 08/19/18 15:15 Lymph % (Auto) 20.6 % (20.0-40.0) 08/19/18 15:15 Throckmorton % (Auto) 9.7 % (0.0-10.0) 08/19/18 15:15 Eos % (Auto) 1.1 % (0.0-4.0) 08/19/18 15:15 Baso % (Auto) 0.5 % (0.0-2.0) 08/19/18 15:15 Neut # (Auto) 6.5 K/uL (1.8-7.0) 08/19/18 15:15 Lymph # (Auto) 2.0 K/uL (1.0-4.3) 08/19/18 15:15 Throckmorton # (Auto) 0.9 K/uL (0.0-0.8) H 08/19/18 15:15 Eos # (Auto) 0.1 K/uL (0.0-0.7) 08/19/18 15:15 Baso # (Auto) 0.0 K/uL (0.0-0.2) 08/19/18 15:15 PT 10.8 Seconds (9.8-13.1) 08/22/18 05:15 INR 1.0 08/22/18 05:15 APTT 42.1 Seconds (25.6-37.1) H 08/19/18 15:15 Sodium 136 mmol/l (132-148) 08/24/18 05:23 Potassium 4.1 MMOL/L (3.6-5.0) 08/24/18 05:23 Chloride 100 mmol/L (98-107) 08/24/18 05:23 Carbon Dioxide 23 mmol/L (22-30) 08/24/18 05:23 Anion Gap 17 (10-20) 08/24/18 05:23 BUN 86 mg/dl (7-17) H 08/24/18 05:23 Creatinine 4.7 mg/dl (0.7-1.2) H 08/24/18 05:23 Est GFR ( Amer) 11 08/24/18 05:23 Est GFR (Non-Af Amer) 9 08/24/18 05:23 POC Glucose (mg/dL) 301 mg/dL (65-110) H 08/24/18 10:40 Random Glucose 132 mg/dL (65-105) H 08/24/18 05:23 Hemoglobin A1c 8.0 % (4.2-6.5) H D 08/22/18 11:45 Calcium 9.4 mg/dL (8.4-10.2) 08/24/18 05:23 Phosphorus 5.0 mg/dl (2.5-4.5) H 08/20/18 11:10 Ferritin 113.0 ng/Ml (11.1-264.0) 08/22/18 11:45 Total Bilirubin 0.3 mg/dl (0.2-1.3) 08/22/18 05:15 AST 20 U/L (14-36) 08/22/18 05:15 ALT 23 U/L (9-52) 08/22/18 05:15 Alkaline Phosphatase 40 U/L (38-126) 08/22/18 05:15 Total Protein 6.5 G/DL (6.3-8.2) 08/22/18 05:15 Albumin 3.4 g/dL (3.5-5.0) L 08/22/18 05:15 Globulin 3.0 gm/dL (2.2-3.9) 08/22/18 05:15 Albumin/Globulin Ratio 1.1 (1.0-2.1) 08/22/18 05:15 TSH 3rd Generation 4.85 mIU/ML (0.46-4.68) H 08/22/18 11:45 PTH Intact Whole Molec 40 pg/mL (14-64) 08/22/18 11:45 Ur Random Creatinine 72.0 mg/dL 08/23/18 18:19 U Random Total Protein 436.0 mg/dL (0.0-12.0) H 08/23/18 18:19 Hep Bs Antigen Negative (NEGATIVE) 08/22/18 11:45 Hep Bs Antibody Negative (NEGATIVE) 08/22/18 11:45 Hep B Core IgM Ab Negative (NEGATIVE) 08/22/18 11:45 Hepatitis Be Antigen Non-reactive (Non-reactive) 08/22/18 11:45 - Hospital Course Hospital Course: This is a 78 yo female with PMH of HTN, DM, ESRD, HLD, Hypothyroidism admitted for first time hemodylasis. Pt was sent by Shop Superintendent Dr Robbins. Otherwise patient have no complains. She denies any confusion, N/V/D headache, chest pain, sob, abd pain, constipation, dysuria or polyuria. Pt to use catheter access until fistula matures. BP noted elevated on admission continue with home medications BP stable and controlled during stay. Patient stable, received HD on date August 20. Patient stable at discharge time, patient with HD scheduled on T/T/S at [facility]. Patient with instructions to f/u with PCP next week. Discharge Exam - Head Exam Head Exam: NORMAL INSPECTION - Eye Exam Eye Exam: EOMI, PERRL - ENT Exam ENT Exam: Mucous Membranes Dry - Respiratory Exam Respiratory Exam: Clear to PA & Lateral, NORMAL BREATHING PATTERN - Cardiovascular Exam Cardiovascular Exam: REGULAR RHYTHM, +S1, +S2. absent: Tachycardia - GI/Abdominal Exam GI & Abdominal Exam: Normal Bowel Sounds, Soft. absent: Distended, Tenderness - Neurological Exam Neurological exam: Alert, CN II-XII Intact, Oriented x3 - Skin Skin Exam: Dry, Warm Discharge Plan - Follow Up Plan Condition: STABLE Disposition: HOME/ ROUTINE Instructions: Hemodialysis (DC), Chronic Kidney Disease (DC) Additional Instructions: F/U with Dr Hunt in next week F/u with [facility] HD center on Tuesdays, and Saturdays. Referrals: [facility] [Outside] Pebbles Hunt MD [Family Provider] - <Wilberto Parish - Last Filed: 08/25/18 09:21> Provider - Provider Date of Admission: 08/19/18 15:12 Attending physician: Pebbles Hunt MD Consults: 08/19/18 15:22 Nephrology Consult Stat Comment: Consulting Provider: Arnav Robbins Consulting Physician: Arnav Robbins Reason for Consult: RF 08/20/18 00:40 Pastoral Care Referral Routine Comment: Physician Instructions: Reason For Exam: new admission Hospital Course - Lab Results Lab Results: Most Recent Lab Values WBC 10.5 K/uL (4.8-10.8) 08/22/18 05:15 RBC 3.12 Mil/uL (3.80-5.20) L 08/22/18 05:15 Hgb 9.2 g/dL (12.0-16.0) L 08/22/18 05:15 Hct 28.7 % (34.0-47.0) L 08/22/18 05:15 MCV 92.1 fl (81.0-99.0) 08/22/18 05:15 MCH 29.4 pg (27.0-31.0) 08/22/18 05:15 MCHC 31.9 g/dL (33.0-37.0) L 08/22/18 05:15 RDW 16.5 % (11.5-14.5) H 08/22/18 05:15 Plt Count 195 K/uL (130-400) 08/22/18 05:15 MPV 8.9 fl (7.2-11.7) 08/19/18 15:15 Neut % (Auto) 68.1 % (50.0-75.0) 08/19/18 15:15 Lymph % (Auto) 20.6 % (20.0-40.0) 08/19/18 15:15 Throckmorton % (Auto) 9.7 % (0.0-10.0) 08/19/18 15:15 Eos % (Auto) 1.1 % (0.0-4.0) 08/19/18 15:15 Baso % (Auto) 0.5 % (0.0-2.0) 08/19/18 15:15 Neut # (Auto) 6.5 K/uL (1.8-7.0) 08/19/18 15:15 Lymph # (Auto) 2.0 K/uL (1.0-4.3) 08/19/18 15:15 Throckmorton # (Auto) 0.9 K/uL (0.0-0.8) H 08/19/18 15:15 Eos # (Auto) 0.1 K/uL (0.0-0.7) 08/19/18 15:15 Baso # (Auto) 0.0 K/uL (0.0-0.2) 08/19/18 15:15 PT 10.8 Seconds (9.8-13.1) 08/22/18 05:15 INR 1.0 08/22/18 05:15 APTT 42.1 Seconds (25.6-37.1) H 08/19/18 15:15 Sodium 136 mmol/l (132-148) 08/24/18 05:23 Potassium 4.1 MMOL/L (3.6-5.0) 08/24/18 05:23 Chloride 100 mmol/L (98-107) 08/24/18 05:23 Carbon Dioxide 23 mmol/L (22-30) 08/24/18 05:23 Anion Gap 17 (10-20) 08/24/18 05:23 BUN 86 mg/dl (7-17) H 08/24/18 05:23 Creatinine 4.7 mg/dl (0.7-1.2) H 08/24/18 05:23 Est GFR ( Amer) 11 08/24/18 05:23 Est GFR (Non-Af Amer) 9 08/24/18 05:23 POC Glucose (mg/dL) 99 mg/dL (65-110) 08/24/18 15:49 Random Glucose 132 mg/dL (65-105) H 08/24/18 05:23 Hemoglobin A1c 8.0 % (4.2-6.5) H D 08/22/18 11:45 Calcium 9.4 mg/dL (8.4-10.2) 08/24/18 05:23 Phosphorus 5.0 mg/dl (2.5-4.5) H 08/20/18 11:10 Ferritin 113.0 ng/Ml (11.1-264.0) 08/22/18 11:45 Total Bilirubin 0.3 mg/dl (0.2-1.3) 08/22/18 05:15 AST 20 U/L (14-36) 08/22/18 05:15 ALT 23 U/L (9-52) 08/22/18 05:15 Alkaline Phosphatase 40 U/L (38-126) 08/22/18 05:15 Total Protein 6.5 G/DL (6.3-8.2) 08/22/18 05:15 Albumin 3.4 g/dL (3.5-5.0) L 08/22/18 05:15 Globulin 3.0 gm/dL (2.2-3.9) 08/22/18 05:15 Albumin/Globulin Ratio 1.1 (1.0-2.1) 08/22/18 05:15 TSH 3rd Generation 4.85 mIU/ML (0.46-4.68) H 08/22/18 11:45 PTH Intact Whole Molec 40 pg/mL (14-64) 08/22/18 11:45 Ur Random Creatinine 72.0 mg/dL 08/23/18 18:19 U Random Total Protein 436.0 mg/dL (0.0-12.0) H 08/23/18 18:19 Hep Bs Antigen Negative (NEGATIVE) 08/22/18 11:45 Hep Bs Antibody Negative (NEGATIVE) 08/22/18 11:45 Hep B Core IgM Ab Negative (NEGATIVE) 08/22/18 11:45 Hepatitis Be Antigen Non-reactive (Non-reactive) 08/22/18 11:45 Attending/Attestation - Attestation I have personally seen and examined this patient.: Yes I have fully participated in the care of the patient.: Yes I have reviewed all pertinent clinical information, including history, physical exam and plan: Yes Notes (Text): 08/25/18 09:21 Patient seen and examined with resident. Case discussed and agreed with assessment and plan.
[2018-08-24 16:06] VITALS: BP 121/69; PULSE 93; TEMP 97.6; O2SAT 92
--- NOTE | 2018-08-24 18:41 | CP.PCM.PN ---
Subjective - Date & Time of Evaluation Date of Evaluation: 08/24/18 Time of Evaluation: 18:38 - Subjective Subjective: renal note no events overnight heent normal vtials reviewed op moist no jvd s1s2 present no resp distress abd soft nt nd bs + ao times 3 cooperative skin normal End-stage renal disease Ecchymosis with some bruises around the AV fistula although it has good bruit With a baseline kidney disease on kidney biopsy reported to be IgA nephropathy and diabetic nephropathy previously Hypertension Diabetes mellitus Hypercalcemia trending down and improving Anemia History of hypothyroidism hd today and tts per schedule lytes ok bp stable volume ok permacath placed, will use today for hd anemia stable for possible discharge today post hd, [place] [facility] [place] Objective - Vital Signs/Intake and Output Vital Signs (last 24 hours): Temp Pulse Resp BP Pulse Ox 97.6 F 93 H 18 121/69 92 L 08/24/18 16:05 08/24/18 16:58 08/24/18 16:05 08/24/18 16:58 08/24/18 16:05 - Medications Medications: Current Medications Acetaminophen (Tylenol 325mg Tab) 650 mg PO Q6 PRN PRN Reason: Headache Last Admin: 08/24/18 16:33 Dose: 650 mg Allopurinol (Zyloprim) 100 mg PO DAILY [facility] Last Admin: 08/24/18 09:26 Dose: 100 mg Dextrose (Dextrose 50% Inj) 0 ml IV STAT PRN; Protocol PRN Reason: Hypoglycemia Protocol Dextrose (Glutose 15) 0 gm PO ONCE PRN; Protocol PRN Reason: Hypoglycemia Protocol Ferrous Sulfate (Feosol) 325 mg PO BID [facility] Last Admin: 08/24/18 09:27 Dose: 325 mg Glucagon (Glucagen Diagnostic Kit) 0 mg IM STAT PRN; Protocol PRN Reason: Hypoglycemia Protocol Heparin Sodium (Porcine) (Heparin) 5,000 units SC Q12 [facility]; Protocol Last Admin: 08/24/18 09:40 Dose: 5,000 units Hydralazine HCl (Apresoline) 100 mg PO TID [facility] Last Admin: 08/24/18 16:58 Dose: Not Given Insulin Detemir (Levemir) 15 units SC DAILY [facility] Last Admin: 08/24/18 09:22 Dose: 15 u Insulin Human Lispro (Humalog) 0 units SC ACHS [facility]; Protocol Last Admin: 08/24/18 16:42 Dose: Not Given Insulin Lispro Protam/Lispro Human (Humalog Mix 75/25) 20 units SC ACL [facility] Last Admin: 08/24/18 13:21 Dose: 20 units Levothyroxine Sodium (Synthroid) 75 mcg PO DAILY@0630 [facility] Last Admin: 08/24/18 06:48 Dose: 75 mcg Lidocaine/Prilocaine (Lidocaine/Prilocaine 2.5%-2.5%) 1 applic TP DAILY PRN PRN Reason: use for dialysis Losartan Potassium (Cozaar) 100 mg PO DAILY [facility] Last Admin: 08/24/18 09:11 Dose: 100 mg [id number]-[id number]-Vjlc Ethyl Esters (Lovaza) 1 gm PO BID [facility] Last Admin: 08/24/18 09:24 Dose: 1 gm Sevelamer Carbonate (Renvela) 800 mg PO TID [facility] Last Admin: 08/24/18 13:12 Dose: 800 mg Vitamin B Complex/Vit C/Folic Acid (Nephro-Jt) 1 tab PO DAILY [facility] Last Admin: 08/24/18 09:25 Dose: 1 tab - Labs Labs: 08/22/18 05:15 08/24/18 05:23 PT 10.8 Seconds (9.8-13.1) 08/22/18 05:15 INR 1.0 08/22/18 05:15 APTT 42.1 Seconds (25.6-37.1) H 08/19/18 15:15
--- NOTE | 2018-08-25 17:10 | PQF ---
PROVIDER RESPONSE TEXT: Diabetes with hyperglycemia REVIEWER QUERY TEXT: Diabetic Associated Manifestations Please further specify the manifestations associated with uncontrolled diabetes Such as: -- Diabetes with hyperglycemia -- Diabetes with hypoglycemia -- Other, please specify H and P includes: DM Chronic, Uncontrolled- Glucose 266H- Insulin sliding scale- low carb diet -Hypog lycemic control The patient's Clinical Indicators include: - Query created by: Pauline Servin on 08/21/2018 9:29 AM Electronically signed by: Chandu Torres 08/25/2018 5:08 PM
== END 2018-08-24 17:30 | disposition home or self-care (01) | DRG 673 ==
LOC: H.ER 14:13 → H.ERHOLD 15:12 → H.TEL 08-20 00:14
PROVIDERS: ADMIT Family Medicine; ATTEND Family Medicine
PROC: 5A1D70Z Performance of Urinary Filtration, Intermittent, Less than 6 Hours Per Day (ICD-10-PCS; 2018-08-22)
PROC: 0JHD3XZ Insertion of Tunneled Vascular Access Device into Right Upper Arm Subcutaneous Tissue and Fascia, Percutaneous Approach (ICD-10-PCS; principal; 2018-08-23)
PROC: 5A1D70Z Performance of Urinary Filtration, Intermittent, Less than 6 Hours Per Day (ICD-10-PCS; 2018-08-23)
DX: I12.0 Hypertensive chronic kidney disease with stage 5 chronic kidney disease or end stage renal disease (principal); N18.6 End stage renal disease; E11.22 Type 2 diabetes mellitus with diabetic chronic kidney disease; E83.52 Hypercalcemia; E11.65 Type 2 diabetes mellitus with hyperglycemia; D63.1 Anemia in chronic kidney disease; E03.9 Hypothyroidism, unspecified; E11.21 Type 2 diabetes mellitus with diabetic nephropathy; E78.00 Pure hypercholesterolemia, unspecified; E78.5 Hyperlipidemia, unspecified; H40.9 Unspecified glaucoma; Z99.2 Dependence on renal dialysis; H26.9 Unspecified cataract; M19.90 Unspecified osteoarthritis, unspecified site; Z79.899 Other long term (current) drug therapy

== ENCOUNTER 2018-08-27 19:30 | Observation (INO) | payer MEDICARE, OTHER ==
[2018-08-27 20:59] LABS: BASO % 0.3 % (0.0-2.0); EOS % 0.3 % (0.0-4.0); HEMOGLOBIN 10.4 g/dL (12.0-16.0); LYMPH # 1.6 K/uL (1.0-4.3); LYMPH % 13.3 % (20.0-40.0); MEAN CELL VOLUME 92.5 fl (81.0-99.0); MEAN CORPUSCULAR HEMOGLOBIN 30.5 pg (27.0-31.0); MEAN PLATELET VOLUME 8.8 fl (7.2-11.7); MONO # 1.1 K/uL (0.0-0.8); MONO % 9.4 % (0.0-10.0); NEUT # 9.2 K/uL (1.8-7.0); NEUT % 76.7 % (50.0-75.0); RBC 3.43 Mil/uL (3.80-5.20); RED CELL DISTRIBUTION WIDTH 17.4 % (11.5-14.5); WHITE BLOOD COUNT 12.1 K/uL (4.8-10.8)
[2018-08-27 21:14] LABS: ALB/GLOB RATIO 1.2 (1.0-2.1); ALBUMIN 3.9 g/dL (3.5-5.0); CALCIUM 8.9 mg/dL (8.4-10.2)
--- NOTE | 2018-08-27 22:00 | ED PDOC ---
HPI: General Adult Time Seen by Provider: 08/27/18 20:14 Chief Complaint (Nursing): Weakness/Neurological Deficit Chief Complaint (Provider): Weakness/Neurological Deficit History Per: Patient, Family History/Exam Limitations: no limitations Onset/Duration Of Symptoms: Hrs (x 3) Current Symptoms Are (Timing): Still Present Additional Complaint(s): 78 year old female with CKD, on dialysis, presents to the ED for evaluation of weakness, onset 3 hours prior to arrival. Patient's daughter reports that she was fine before dialysis and is now very weak and feels itchy. Patient has a left chest port in place. Son reports that she last ate at 11:30 and is now requesting to eat. Denies vomiting, dyspnea, shortness of breath and chest pain. PMD: Dr. Hunt Neph: Dr. Robbins Past Medical History Reviewed: Historical Data ( ), Nursing Documentation, Vital Signs Vital Signs: Last Vital Signs Temp 97.8 F 08/27/18 19:35 Pulse 105 H 08/27/18 19:35 Resp 20 08/27/18 19:35 BP 143/67 08/27/18 19:35 Pulse Ox 99 08/27/18 19:35 - Medical History PMH: Anemia, Arthritis, Asthma ( CHILD), Diabetes, Fractures (Left ankle), HTN, Hypercholesterolemia, Hyperlipidemia, Hypothyroidism, Chronic Kidney Disease Denies: HIV - Family History Family History: States: Hypertension - Immunization History Hx Tetanus Toxoid Vaccination: No Hx Influenza Vaccination: Yes Hx Pneumococcal Vaccination: No - Home Medications Home Medications: Ambulatory Orders Medication Instructions Recorded Rpofr-1-Tpqx Ethyl Esters 1 GM 4 gm PO BID 09/30/14 [Lovaza] Allopurinol [Zyloprim] 100 mg PO DAILY 09/12/17 Ferrous Sulfate 325 mg PO BID 06/14/18 Hydralazine HCl 100 mg PO TID 06/14/18 Sevelamer Carbonate [Renvela] 800 mg PO TID 06/14/18 Vit B Comp No.3/Folic/C/Biotin 1 tab PO DAILY 06/14/18 [[employer]ice-Jt Rx Tablet] Cholecalciferol (Vitamin D3) 2,000 unit PO DAILY 08/19/18 [Vitamin D3] Insulin Aspart Prot/Insuln Asp 20 unit SC ACL 08/19/18 [Novolog Mix 70-30 Vial] Insulin Glargine,Hum.rec.anlog 15 unit SC DAILY 08/19/18 [Brunoaglloreta Saenz U-100] Levothyroxine [Synthroid] 75 mcg PO DAILY 08/19/18 Olmesartan [BenicarNf] 40 mg PO DAILY 08/19/18 cycloSPORINE [Restasis] 1 drop EACHEYE Q12 08/19/18 - Allergies Allergies/Adverse Reactions: Allergies Allergy/AdvReac Type Severity Reaction Status Date / Time naproxen [From Aleve] Allergy ITCHING Verified 08/27/18 19:35 salmon AdvReac Intermediate ITCHING Uncoded 08/27/18 19:35 Review of Systems ROS Statement: Except As Marked, All Systems Reviewed And Found Negative Constitutional: Positive for: Weakness Cardiovascular: Negative for: Chest Pain Gastrointestinal: Negative for: Vomiting, Diarrhea Physical Exam - Reviewed Nursing Documentation Reviewed: Yes Vital Signs Reviewed: Yes - Physical Exam Appears: Positive for: No Acute Distress Head Exam: Positive for: ATRAUMATIC, NORMAL INSPECTION, NORMOCEPHALIC Skin: Positive for: Warm (to touch), Dry, Jaundice (unclear if this is baseline) Eye Exam: Positive for: EOMI, Normal appearance, PERRL Neck: Positive for: Normal, Painless ROM, Supple Cardiovascular/Chest: Positive for: Tachycardia (regular rhythm), Other (left chest port with clean dress, no erythema or drainage observed) Respiratory: Positive for: Normal Breath Sounds. Negative for: Wheezing, Respiratory Distress Gastrointestinal/Abdominal: Positive for: Normal Exam, Soft. Negative for: Tenderness Back: Positive for: Normal Inspection. Negative for: L CVA Tenderness, R CVA Tenderness Extremity: Positive for: Normal ROM (x 4), Other (left arm fistula with palpable thrill). Negative for: Deformity, Swelling (left arm) Neurological/Psych: Positive for: Awake, Alert, Normal Tone, Oriented. Negative for: Motor/Sensory Deficits - Laboratory Results Result Diagrams: 08/27/18 20:50 08/27/18 20:50 Lab Results: Total Bilirubin 0.4 mg/dl (0.2-1.3) 08/27/18 20:50 AST 45 U/L (14-36) H D 08/27/18 20:50 ALT 47 U/L (9-52) 08/27/18 20:50 Alkaline Phosphatase 68 U/L (38-126) 08/27/18 20:50 Total Protein 7.2 G/DL (6.3-8.2) 08/27/18 20:50 Albumin 3.9 g/dL (3.5-5.0) 08/27/18 20:50 Globulin 3.2 gm/dL (2.2-3.9) 08/27/18 20:50 Albumin/Globulin Ratio 1.2 (1.0-2.1) 08/27/18 20:50 - ECG O2 Sat by Pulse Oximetry: 99 (RA) Pulse Ox Interpretation: Normal Medical Decision Making Medical Decision Makin:20 MDM: generalized weakness following dialysis treatment Labs and flu swab; r/o infection Possibly dehydration Reassess 01:44 CXR is unremarkable. Labs show positive leukocyte esterase, source most likely UTI. Will start Cefepime antibiotics. Patient already presented to family practice resident for observation. Scribe Attestation: Documented by Mariah Valencia, acting as a scribe Jesus Alberto Johnson MD Provider Scribe Attestation: All medical record entries made by the Scribe were at my direction and personally dictated by me. I have reviewed the chart and agree that the record accurately reflects my personal performance of the history, physical exam, medical decision making, and the department course for this patient. I have also personally directed, reviewed, and agree with the discharge instructions and disposition. Disposition - Patient ED Disposition Is Patient to be Admitted: Yes - Disposition Disposition Time: 01:44 - Pt Status Changed To: Hospital Disposition Of: Observation
[2018-08-27] MEDS ORDERED: Insulin Regular 100 units/ml SC STA (23:23)
[2018-08-27] MEDS ORDERED: Sodium Chloride 0.9% 1,000 ML IV STA (23:27)
[2018-08-27] MEDS ORDERED: Insulin Regular 100 units/ml ONE (23:54)
[2018-08-28 00:58] LABS: SQUAMOUS EPITHIAL 15 /hpf (0-5); URINE BILIRUBIN NEGATIVE (NEGATIVE); URINE BLOOD NEGATIVE (NEGATIVE); URINE CLARITY CLOUDY (Clear); URINE COLOR YELLOW (YELLOW); URINE GLUCOSE (UA) 50 mg/dL (NEGATIVE); URINE LEUKOCYTE ESTERASE TRACE Leu/uL (Negative); URINE PROTEIN >=500 mg/dL (NEGATIVE); URINE UROBILINOGEN 0.2-1.0 mg/dL (0.2-1.0)
[2018-08-28] MEDS ORDERED: Cefepime 2 GM in Sodium Chloride 0.9% 100 ML IVPB STA (01:43)
[2018-08-28] MEDS ORDERED: Dextrose 50% SYRINGE Inj (50 ml) IV PRN (02:38)
[2018-08-28] MEDS ORDERED: Glucagon Recombinant 1 mg Inj IM PRN (02:38)
--- NOTE | 2018-08-28 02:41 | CP.PCM.HP ---
History of Present Illness - History of Present Illness History of Present Illness: This is a 78 y/o female with PMH of HTN, DM, ESRD on HD/recently started/(TThS), HLD, and Hypothyroidism admitted to [facility] for evaluation and treatment of generalized weakness, body aches and dizziness s/p HD. Patient reports she had HD this afternoon, patient has received 3 HD so far and reports she was recently admitted to [facility] for her first HD with Dr. Robbins. Patient states she was feeling fine before her HD this morning. Otherwise patient have no complains. She denies any confusion, N/V/D headache, chest pain, sob, abd pain, blurred vision, constipation, dysuria or polyuria. Denies any sick contact or recent travel. [facility] [id number] PCP: Dr Almendarez Nephrology: Dr. Robbins Allg: Naproxen, salmon PMH: HTN, DM, ESRD on HD/recently started/(TThS), HLD, and Hypothyroidism PSH: Left ankle surgery due fracture, axillary fistula insertion SH: denies smoking, drinking or drug use FH: + heart disease ER Course: VS: 97.8, HR 105, RR 20, 143/67, Sp02 99 CBC: 12.1>10.4/31.7<237 CMP: BUN/Cr 28/2.0, BS 258 UA: + leuk CXR: No acute changes, read by me, f/u official report Present on Admission - Present on Admission Any Indicators Present on Admission: No History of DVT/PE: No Review of Systems - Constitutional Constitutional: absent: Daytime Sleepiness - EENT Eyes: absent: Change in Vision Ears: absent: Ear Discharge Nose/Mouth/Throat: absent: Nasal Congestion - Breasts Breasts: absent: Skin Changes - Cardiovascular Cardiovascular: absent: Chest Pain - Respiratory Respiratory: absent: Cough, Dyspnea, Hemoptysis - Gastrointestinal Gastrointestinal: absent: Abdominal Pain - Genitourinary Genitourinary: absent: Change in Urinary Stream, Dysuria, Pyuria, Nocturia - Musculoskeletal Musculoskeletal: Muscle Cramps, Muscle Weakness. absent: Arthralgias, Numbness - Integumentary Integumentary: absent: Bleeding Lesions, Rash - Neurological Neurological: Dizziness, Focal Weakness. absent: Abnormal Gait, Numbness - Psychiatric Psychiatric: absent: Anxiety - Hematologic/Lymphatic Hematologic: absent: Easy Bleeding Past Patient History - Past Medical History & Family History Past Medical History?: Yes - Past Social History Smoking Status: Never Smoked - CARDIAC Hx Hypercholesterolemia: Yes Hx Hypertension: Yes - PULMONARY Hx Asthma: Yes ( CHILD) - NEUROLOGICAL Hx Neurological Disorder: No - HEENT Hx HEENT Problems: Yes Hx Cataracts: Yes Hx Glaucoma: Yes - RENAL Hx Chronic Kidney Disease: Yes - ENDOCRINE/METABOLIC Hx Hypothyroidism: Yes - HEMATOLOGICAL/ONCOLOGICAL Hx Anemia: Yes Hx Human Immunodeficiency Virus (HIV): No - INTEGUMENTARY Hx Dermatological Problems: No - MUSCULOSKELETAL/RHEUMATOLOGICAL Hx Arthritis: Yes Hx Fractures: Yes (Left ankle) - GASTROINTESTINAL Hx Gastrointestinal Disorders: No - GENITOURINARY/GYNECOLOGICAL Hx Genitourinary Disorders: No - PSYCHIATRIC Hx Psychophysiologic Disorder: No Hx Substance Use: No - SURGICAL HISTORY Hx Surgeries: Yes Hx Arteriovenous Shunt: Yes (AV SHUNT RIGHT ARM) Hx Cataract Extraction: Yes Hx Dilation and Curettage: Yes Hx Eye Surgery: Yes (GLAUCOMA SURGERY-BILAT) Hx Musculoskeletal Surgery: Yes (LEFT FOOT) Hx Orthopedic Surgery: Yes (LEFT ANKLE) - ANESTHESIA Hx Anesthesia: Yes Hx Anesthesia Reactions: Yes ("too much vomiting") Hx Malignant Hyperthermia: No Meds Allergies/Adverse Reactions: Allergies Allergy/AdvReac Type Severity Reaction Status Date / Time naproxen [From Aleve] Allergy ITCHING Verified 08/27/18 19:35 salmon AdvReac Intermediate ITCHING Uncoded 08/27/18 19:35 Physical Exam - Constitutional Appears: No Acute Distress - Head Exam Head Exam: ATRAUMATIC, NORMAL INSPECTION, NORMOCEPHALIC - Eye Exam Eye Exam: EOMI, Normal appearance, PERRL Pupil Exam: NORMAL ACCOMODATION, PERRL - ENT Exam ENT Exam: Mucous Membranes Moist - Respiratory Exam Respiratory Exam: Clear to Auscultation Bilateral, NORMAL BREATHING PATTERN. absent: Rhonchi, Wheezes, Respiratory Distress - Cardiovascular Exam Cardiovascular Exam: REGULAR RHYTHM, +S1, +S2 Additional comments: left chest port in place - GI/Abdominal Exam GI & Abdominal Exam: Soft. absent: Distended, Tenderness - Extremities Exam Extremities exam: Positive for: normal capillary refill, normal inspection, pedal pulses present. Negative for: pedal edema, tenderness Additional comments: R arm fistula - Back Exam Back exam: NORMAL INSPECTION. absent: CVA tenderness (L), CVA tenderness (R) - Neurological Exam Neurological exam: Alert, CN II-XII Intact, Oriented x3, Reflexes Normal - Psychiatric Exam Psychiatric exam: Normal Affect - Skin Skin Exam: Dry, Intact, Normal Color, Warm Results - Vital Signs Recent Vital Signs: Last Vital Signs Temp 98.2 F 08/28/18 01:44 Pulse 86 08/28/18 01:44 Resp 17 08/28/18 01:44 BP 140/68 08/28/18 01:44 Pulse Ox 99 08/28/18 01:58 - Labs Result Diagrams: 08/27/18 20:50 08/27/18 20:50 Labs: Laboratory Results - last 24 hr 08/27/18 08/27/18 08/27/18 20:47 20:50 20:50 WBC 12.1 H RBC 3.43 L Hgb 10.4 L Hct 31.7 L MCV 92.5 MCH 30.5 MCHC 33.0 RDW 17.4 H Plt Count 237 MPV 8.8 Neut % (Auto) 76.7 H Lymph % (Auto) 13.3 L [place] % (Auto) 9.4 Eos % (Auto) 0.3 Baso % (Auto) 0.3 Neut # (Auto) 9.2 H Lymph # (Auto) 1.6 [place] # (Auto) 1.1 H Eos # (Auto) 0.0 Baso # (Auto) 0.0 Sodium 135 Potassium 3.7 Chloride 95 L Carbon Dioxide 27 Anion Gap 17 BUN 28 H Creatinine 2.0 H Est GFR ( Amer) 29 Est GFR (Non-Af Amer) 24 POC Glucose (mg/dL) 302 H Random Glucose 258 H Calcium 8.9 Total Bilirubin 0.4 AST 45 H D ALT 47 Alkaline Phosphatase 68 Total Protein 7.2 Albumin 3.9 Globulin 3.2 Albumin/Globulin Ratio 1.2 Urine Color Urine Clarity Urine pH Ur Specific [place] Urine Protein Urine Glucose (UA) Urine Ketones Urine Blood Urine Nitrate Urine Bilirubin Urine Urobilinogen Ur Leukocyte Esterase Urine RBC (Auto) Urine Microscopic WBC Ur Squamous Epith Cells Influenza Typ A,B (EIA) 08/27/18 08/28/18 20:50 00:40 WBC RBC Hgb Hct MCV MCH MCHC RDW Plt Count MPV Neut % (Auto) Lymph % (Auto) [place] % (Auto) Eos % (Auto) Baso % (Auto) Neut # (Auto) Lymph # (Auto) [place] # (Auto) Eos # (Auto) Baso # (Auto) Sodium Potassium Chloride Carbon Dioxide Anion Gap BUN Creatinine Est GFR ( Amer) Est GFR (Non-Af Amer) POC Glucose (mg/dL) Random Glucose Calcium Total Bilirubin AST ALT Alkaline Phosphatase Total Protein Albumin Globulin Albumin/Globulin Ratio Urine Color Yellow Urine Clarity Cloudy Urine pH 7.0 Ur Specific [place] 1.014 Urine Protein >=500 Urine Glucose (UA) 50 Urine Ketones Negative Urine Blood Negative Urine Nitrate Negative Urine Bilirubin Negative Urine Urobilinogen 0.2-1.0 Ur Leukocyte Esterase Trace Urine RBC (Auto) 2 Urine Microscopic WBC 6 H Ur Squamous Epith Cells 15 H Influenza Typ A,B (EIA) Negative for flu a/b Assessment & Plan - Assessment and Plan (Free Text) Assessment: 78 y/o female with PMH of HTN, DM, ESRD on HD/recently started/(TThS), HLD, and Hypothyroidism admitted to [facility] for evaluation and treatment of generalized weakness, body aches and dizziness s/p HD. Generalized weakness/Dizziness likely 2/2 Hemodialysis - Admit to [facility] - Follow up EKG - C/w IVF - Monitor VS or any neuro changes Positive Leukocyte Esterase in Urine - S/p Cefepime in ER - Patient is asymptomatic - F/u Urine culture - Will hold off on Abx for now HTN - Chronic, controlled - Hold BP medications for now due to dizziness - Reevaluation in morning and consider restarting DM - Chronic, uncontrolled - Last HA1C 8.0 - Insulin sliding scale - Hypoglycemic control - AccuChecks ACHS - C/w home insulin HLD - Chronic - Continue home medication Hypothyroidism - Continue home medication DVT prophylaxis - SCD Diet - Diabetes FULL CODE
[2018-08-28] MEDS ORDERED: Sodium Chloride 0.9% 1,000 ML IV SCH (02:45)
[2018-08-28 03:38] VITALS: BMI 24.0
[2018-08-28 05:36] LABS: SQUAMOUS EPITHIAL 11 /hpf (0-5); URINE BACTERIA RARE (<OCC); URINE BILIRUBIN NEGATIVE (NEGATIVE); URINE BLOOD NEGATIVE (NEGATIVE); URINE CLARITY SLIGHTY-CLOUDY (Clear); URINE COLOR YELLOW (YELLOW); URINE GLUCOSE (UA) 50 mg/dL (NEGATIVE); URINE LEUKOCYTE ESTERASE TRACE Leu/uL (Negative); URINE PROTEIN >=500 mg/dL (NEGATIVE); URINE UROBILINOGEN 0.2-1.0 mg/dL (0.2-1.0)
[2018-08-28] MEDS: Levothyroxine 75 MCG TAB PO SCH (05:46)
[2018-08-28] MEDS: Cholecalciferol 1,000 INTLU TAB PO SCH (08:40)
[2018-08-28] MEDS: Multivitamin Vitamin B Complex (Nephro-Vite) Tab PO SCH (08:41)
[2018-08-28] MEDS: Insulin Lispro (humaLOG) 100 Units/ml Inj SC SCH ×4 (08:42→21:14)
[2018-08-28] MEDS ORDERED: HYDRALAZINE HCL 100 MG PO SCH (09:00)
[2018-08-28] MEDS ORDERED: OLMESARTAN 40 MG PO SCH (09:00)
[2018-08-28] MEDS ORDERED: Omega-3-Acid Ethyl Esters 1 GM Cap PO SCH (09:00)
[2018-08-28] MEDS ORDERED: Insulin Detemir 100 Units/ml Inj SC SCH (09:00)
[2018-08-28] MEDS: Omega-3-Acid Ethyl Esters 1 GM Cap PO SCH ×2 (10:04→16:12)
[2018-08-28] MEDS ORDERED: INSULN ASP SC SCH (11:30)
[2018-08-28] MEDS ORDERED: INSULIN ASPART PROT SC SCH (11:30)
[2018-08-28] MEDS ORDERED: Bisacodyl 5mg EC Tab PO ONE (11:30)
[2018-08-28] MEDS: Insulin Lispro Mix 75/25 100 units/ml (HumaLog) 10ml SC SCH (12:09)
[2018-08-28] MEDS: Artificial Tears Opht Soln OU SCH ×2 (12:13→21:12)
--- NOTE | 2018-08-28 13:08 | RAD ---
Date of service: 08/28/2018 HISTORY: cough COMPARISON: 08/03/2017 TECHNIQUE: Chest PA and lateral views FINDINGS: LUNGS: No interval consolidation. The trace blunting left costophrenic angle is similar. Small left pleural effusion and/or left pleural thickening compatible with this. PLEURA: No interval increasing pleural effusion trace left pleural effusion a chronic pleural thickening-similar appearing. No pneumothorax. Probable trace biapical pleural thickening-similar CARDIOVASCULAR: There is presence of aortic atherosclerotic calcification on x-ray. Minimal cardiomegaly. Pulmonary vasculature probably top-normal. There is sub cm nodular opacities left mid lung zone nonspecific difficult to identify with certainty on prior studies-vessel seen on end are 1 consideration. Interval pulmonary nodules are not excluded. For this clarification, consider elective a noncontrast CT chest Interval insertion dialysis catheter OSSEOUS STRUCTURES: Thoracic spondylosis. VISUALIZED UPPER ABDOMEN: Normal. OTHER FINDINGS: None. IMPRESSION: Interval insertion left dialysis catheter. No pneumothorax. There is sub cm nodular opacities left mid lung zone nonspecific difficult to identify with certainty on prior studies-vessel seen on end are 1 consideration. Interval pulmonary nodules are not excluded. For this clarification, consider elective a noncontrast CT chest Other findings as above.
--- NOTE | 2018-08-28 13:20 | CP.PCM.CON ---
History of Present Illness - History of Present Illness History of Present Illness: This 78 years of age female who started recently on hemodialysis presented to the emergency room weakness and dizziness post hemodialysis outpatient yesterday. Vital signs noted to be stable in the emergency room and admitted for further evaluation. No nausea no vomiting and her symptom appears to be subsided today and no particular problems reported. Patient has a right upper AV fistula which having difficulty to cannulate that fistula when she was here last admission. Therefore she has left subclavian permacath we are dialysis began from that area. Medical history significant Multitude of previous admission related to Chronic kidney disease and patient also diabetic History of hypertension with a previous kidney biopsy related to diabetic nephropathy and also IgA nephropathy at one-point. With the fistula in the right upper arm operated twice by Dr. Cruz which has not been functioning very well and not mature Review of Systems - Constitutional Constitutional: Anorexia. absent: Chills - EENT Nose/Mouth/Throat: absent: Nasal Trauma - Breasts Breasts: absent: Change in Shape - Cardiovascular Cardiovascular: absent: Chest Pain at Rest, Dyspnea, Edema, Pedal Edema - Respiratory Respiratory: absent: Hemoptysis - Gastrointestinal Gastrointestinal: absent: Abdominal Pain, Vomiting - Genitourinary Genitourinary: Nocturia - Musculoskeletal Musculoskeletal: Muscle Weakness. absent: Abnormal Gait, Back Pain, Numbness - Neurological Neurological: As Per HPI - Endocrine Endocrine: Fatigue - Hematologic/Lymphatic Hematologic: absent: Easy Bleeding Past Patient History - Past Medical History & Family History Past Medical History?: Yes - Past Social History Smoking Status: Never Smoked - CARDIAC Hx Hypercholesterolemia: Yes Hx Hypertension: Yes - PULMONARY Hx Asthma: Yes ( CHILD) - NEUROLOGICAL Hx Neurological Disorder: No - HEENT Hx HEENT Problems: Yes Hx Cataracts: Yes Hx Glaucoma: Yes - RENAL Hx Chronic Kidney Disease: Yes - ENDOCRINE/METABOLIC Hx Hypothyroidism: Yes - HEMATOLOGICAL/ONCOLOGICAL Hx Anemia: Yes Hx Human Immunodeficiency Virus (HIV): No - INTEGUMENTARY Hx Dermatological Problems: No - MUSCULOSKELETAL/RHEUMATOLOGICAL Hx Arthritis: Yes Hx Fractures: Yes (Left ankle) - GASTROINTESTINAL Hx Gastrointestinal Disorders: No - GENITOURINARY/GYNECOLOGICAL Hx Genitourinary Disorders: No - PSYCHIATRIC Hx Psychophysiologic Disorder: No Hx Substance Use: No - SURGICAL HISTORY Hx Surgeries: Yes Hx Arteriovenous Shunt: Yes (AV SHUNT RIGHT ARM) Hx Cataract Extraction: Yes Hx Dilation and Curettage: Yes Hx Eye Surgery: Yes (GLAUCOMA SURGERY-BILAT) Hx Musculoskeletal Surgery: Yes (LEFT FOOT) Hx Orthopedic Surgery: Yes (LEFT ANKLE) - ANESTHESIA Hx Anesthesia: Yes Hx Anesthesia Reactions: Yes ("too much vomiting") Hx Malignant Hyperthermia: No Meds Allergies/Adverse Reactions: Allergies Allergy/AdvReac Type Severity Reaction Status Date / Time naproxen [From Aleve] Allergy ITCHING Verified 08/27/18 19:35 salmon AdvReac Intermediate ITCHING Uncoded 08/27/18 19:35 - Medications Medications: Current Medications Acetaminophen (Tylenol 325mg Tab) 650 mg PO Q6 PRN PRN Reason: Pain, moderate (4-7) Allopurinol (Zyloprim) 100 mg PO DAILY [facility] Last Admin: 08/28/18 08:41 Dose: 100 mg Artificial Tears (Artificial Tears) 1 drop OU Q12 [facility] Last Admin: 08/28/18 12:13 Dose: 1 drop Cholecalciferol (Vitamin D) 2,000 intlu PO DAILY [facility] Last Admin: 08/28/18 08:40 Dose: 2,000 intlu Dextrose (Dextrose 50% Inj) 0 ml IV STAT PRN; Protocol PRN Reason: Hypoglycemia Protocol Dextrose (Glutose 15) 0 gm PO ONCE PRN; Protocol PRN Reason: Hypoglycemia Protocol Glucagon (Glucagen Diagnostic Kit) 0 mg IM STAT PRN; Protocol PRN Reason: Hypoglycemia Protocol Hydralazine HCl (Apresoline) 100 mg PO TID [facility] Sodium Chloride (Sodium Chloride 0.9%) 1,000 mls @ 100 mls/hr IV .Q10H [facility] Insulin Detemir (Levemir) 15 units SC DAILY [facility] Insulin Human Lispro (Humalog) 0 units SC ACHS [facility]; Protocol Last Admin: 08/28/18 12:12 Dose: 4 units Insulin Lispro Protam/Lispro Human (Humalog Mix 75/25) 20 units SC ACL [facility] Last Admin: 08/28/18 12:09 Dose: 20 units Levothyroxine Sodium (Synthroid) 75 mcg PO DAILY@0630 [facility] Last Admin: 08/28/18 05:46 Dose: 75 mcg Losartan Potassium (Cozaar) 100 mg PO DAILY [facility] Last Admin: 08/28/18 08:41 Dose: 100 mg [id number] Ethyl Esters (Lovaza) 2 gm PO BID [facility] Last Admin: 08/28/18 10:04 Dose: 2 gm Sevelamer Carbonate (Renvela) 800 mg PO TID [facility] Last Admin: 08/28/18 12:11 Dose: 800 mg Vitamin B Complex/Vit C/Folic Acid (Nephro-Jt) 1 tab PO DAILY [facility] Last Admin: 08/28/18 08:41 Dose: 1 tab Physical Exam - Constitutional Appears: No Acute Distress - Eye Exam Eye Exam: Conjunctival injection - ENT Exam ENT Exam: absent: Mucous Membranes Moist - Neck Exam Neck exam: Negative for: Lymphadenopathy - Respiratory Exam Respiratory Exam: NORMAL BREATHING PATTERN. absent: Rhonchi, Wheezes - Cardiovascular Exam Cardiovascular Exam: absent: Gallop, JVD, Rubs - GI/Abdominal Exam GI & Abdominal Exam: absent: Guarding - Extremities Exam Extremities exam: Negative for: calf tenderness - Back Exam Back exam: absent: CVA tenderness (L), CVA tenderness (R) - Neurological Exam Neurological exam: Alert - Psychiatric Exam Psychiatric exam: Normal Affect Results - Vital Signs Recent Vital Signs: Last Vital Signs Temp 98 F 08/28/18 08:04 Pulse 100 H 08/28/18 08:04 Resp 20 08/28/18 08:04 BP 118/73 08/28/18 08:04 Pulse Ox 99 08/28/18 08:04 - Labs Result Diagrams: 08/27/18 20:50 08/27/18 20:50 Labs: Laboratory Results - last 24 hr 08/27/18 08/27/18 08/27/18 20:47 20:50 20:50 WBC 12.1 H RBC 3.43 L Hgb 10.4 L Hct 31.7 L MCV 92.5 MCH 30.5 MCHC 33.0 RDW 17.4 H Plt Count 237 MPV 8.8 Neut % (Auto) 76.7 H Lymph % (Auto) 13.3 L [place] % (Auto) 9.4 Eos % (Auto) 0.3 Baso % (Auto) 0.3 Neut # (Auto) 9.2 H Lymph # (Auto) 1.6 [place] # (Auto) 1.1 H Eos # (Auto) 0.0 Baso # (Auto) 0.0 Sodium 135 Potassium 3.7 Chloride 95 L Carbon Dioxide 27 Anion Gap 17 BUN 28 H Creatinine 2.0 H Est GFR ( Amer) 29 Est GFR (Non-Af Amer) 24 POC Glucose (mg/dL) 302 H Random Glucose 258 H Calcium 8.9 Total Bilirubin 0.4 AST 45 H D ALT 47 Alkaline Phosphatase 68 Total Protein 7.2 Albumin 3.9 Globulin 3.2 Albumin/Globulin Ratio 1.2 Urine Color Urine Clarity Urine pH Ur Specific [place] Urine Protein Urine Glucose (UA) Urine Ketones Urine Blood Urine Nitrate Urine Bilirubin Urine Urobilinogen Ur Leukocyte Esterase Urine RBC (Auto) Urine Microscopic WBC Ur Squamous Epith Cells Urine Bacteria Influenza Typ A,B (EIA) 08/27/18 08/28/18 08/28/18 20:50 00:40 02:31 WBC RBC Hgb Hct MCV MCH MCHC RDW Plt Count MPV Neut % (Auto) Lymph % (Auto) [place] % (Auto) Eos % (Auto) Baso % (Auto) Neut # (Auto) Lymph # (Auto) [place] # (Auto) Eos # (Auto) Baso # (Auto) Sodium Potassium Chloride Carbon Dioxide Anion Gap BUN Creatinine Est GFR ( Amer) Est GFR (Non-Af Amer) POC Glucose (mg/dL) 80 Random Glucose Calcium Total Bilirubin AST ALT Alkaline Phosphatase Total Protein Albumin Globulin Albumin/Globulin Ratio Urine Color Yellow Urine Clarity Cloudy Urine pH 7.0 Ur Specific [place] 1.014 Urine Protein >=500 Urine Glucose (UA) 50 Urine Ketones Negative Urine Blood Negative Urine Nitrate Negative Urine Bilirubin Negative Urine Urobilinogen 0.2-1.0 Ur Leukocyte Esterase Trace Urine RBC (Auto) 2 Urine Microscopic WBC 6 H Ur Squamous Epith Cells 15 H Urine Bacteria Influenza Typ A,B (EIA) Negative for flu a/b 08/28/18 08/28/18 08/28/18 05:05 05:23 10:56 WBC RBC Hgb Hct MCV MCH MCHC RDW Plt Count MPV Neut % (Auto) Lymph % (Auto) [place] % (Auto) Eos % (Auto) Baso % (Auto) Neut # (Auto) Lymph # (Auto) [place] # (Auto) Eos # (Auto) Baso # (Auto) Sodium Potassium Chloride Carbon Dioxide Anion Gap BUN Creatinine Est GFR ( Amer) Est GFR (Non-Af Amer) POC Glucose (mg/dL) 186 H 286 H Random Glucose Calcium Total Bilirubin AST ALT Alkaline Phosphatase Total Protein Albumin Globulin Albumin/Globulin Ratio Urine Color Yellow Urine Clarity Slighty-cloudy Urine pH 7.0 Ur Specific [place] 1.009 Urine Protein >=500 Urine Glucose (UA) 50 Urine Ketones Negative Urine Blood Negative Urine Nitrate Negative Urine Bilirubin Negative Urine Urobilinogen 0.2-1.0 Ur Leukocyte Esterase Trace Urine RBC (Auto) 2 Urine Microscopic WBC 13 H Ur Squamous Epith Cells 11 H Urine Bacteria Rare Influenza Typ A,B (EIA) Assessment & Plan (1) Chronic kidney disease with end stage renal failure on dialysis Assessment and Plan: End-stage renal disease Patient presented with dizziness was dialysis and weakness Diabetes mellitus Anemia Hyperphosphatemia History of hyperkalemia Recommendation We will adjust the dialysis for the patient make it smaller dialyzer and scheduled for tomorrow If she tolerated dialysis tomorrow well as far as I am concerned from renal service patient can be discharged if she cleared by neurology and primary team Status: Acute (2) Diabetes mellitus Status: Acute (3) Hyperlipemia Status: Acute (4) Hypertension Status: Acute (5) Hypoglycemia Status: Acute (6) Hypothyroidism Status: Acute
[2018-08-28] MEDS: Sodium Chloride 0.9% 500 ML IV SCH (16:13)
[2018-08-29] MEDS: Sodium Chloride 0.9% 500 ML IV SCH ×2 (01:26→12:32)
[2018-08-29 04:04] VITALS: RESP 20
[2018-08-29] MEDS: Levothyroxine 75 MCG TAB PO SCH (05:38)
[2018-08-29 08:11] VITALS: BP 133/66; PULSE 85; TEMP 97.7; O2SAT 95
[2018-08-29] MEDS: Artificial Tears Opht Soln OU SCH (08:33)
[2018-08-29] MEDS: Insulin Lispro (humaLOG) 100 Units/ml Inj SC SCH ×2 (08:33→12:36)
[2018-08-29] MEDS: Multivitamin Vitamin B Complex (Nephro-Vite) Tab PO SCH (08:34)
[2018-08-29] MEDS: Omega-3-Acid Ethyl Esters 1 GM Cap PO SCH (08:34)
[2018-08-29] MEDS: Cholecalciferol 1,000 INTLU TAB PO SCH (08:35)
[2018-08-29] MEDS ORDERED: Epoetin Alfa 20000 UNIT/ML Inj IV SCH (09:00)
--- NOTE | 2018-08-29 10:41 | CP.PCM.PN ---
Subjective - Date & Time of Evaluation Date of Evaluation: 08/29/18 Time of Evaluation: 10:36 - Subjective Subjective: Dialysis note She was seen on hemodialysis now. Vital signs stable patient awake and conscious tolerating very well. I discussed the dialysis order with the dialysis nurse at the bedside With ultrafiltration of about 250 cc Objective - Vital Signs/Intake and Output Vital Signs (last 24 hours): Temp Pulse Resp BP Pulse Ox 97.7 F 85 20 133/66 95 08/29/18 09:00 08/29/18 09:00 08/29/18 09:00 08/29/18 09:00 08/29/18 09:00 - Medications Medications: Current Medications Acetaminophen (Tylenol 325mg Tab) 650 mg PO Q6 PRN PRN Reason: Pain, moderate (4-7) Allopurinol (Zyloprim) 100 mg PO DAILY [facility] Last Admin: 08/29/18 08:34 Dose: 100 mg Artificial Tears (Artificial Tears) 1 drop OU Q12 [facility] Last Admin: 08/29/18 08:33 Dose: 1 drop Cholecalciferol (Vitamin D) 2,000 intlu PO DAILY [facility] Last Admin: 08/29/18 08:35 Dose: 2,000 intlu Dextrose (Dextrose 50% Inj) 0 ml IV STAT PRN; Protocol PRN Reason: Hypoglycemia Protocol Dextrose (Glutose 15) 0 gm PO ONCE PRN; Protocol PRN Reason: Hypoglycemia Protocol Epoetin Bj (Procrit) 2,000 unit IV TTS [facility] Last Admin: 08/29/18 09:30 Dose: 2,000 unit Glucagon (Glucagen Diagnostic Kit) 0 mg IM STAT PRN; Protocol PRN Reason: Hypoglycemia Protocol Hydralazine HCl (Apresoline) 100 mg PO TID [facility] Sodium Chloride (Sodium Chloride 0.9%) 1,000 mls @ 100 mls/hr IV .Q10H [facility] Sodium Chloride (Sodium Chloride 0.9%) 500 mls @ 50 mls/hr IV .Q10H [facility] Last Admin: 08/29/18 01:26 Dose: 50 mls/hr Insulin Detemir (Levemir) 15 units SC DAILY [facility] Insulin Human Lispro (Humalog) 0 units SC ACHS [facility]; Protocol Last Admin: 08/29/18 08:33 Dose: 2 units Insulin Lispro Protam/Lispro Human (Humalog Mix 75/25) 20 units SC ACL [facility] Last Admin: 08/28/18 12:09 Dose: 20 units Levothyroxine Sodium (Synthroid) 75 mcg PO DAILY@0630 [facility] Last Admin: 08/29/18 05:38 Dose: 75 mcg Losartan Potassium (Cozaar) 100 mg PO DAILY [facility] Last Admin: 08/29/18 08:33 Dose: Not Given [id number] Ethyl Esters (Lovaza) 2 gm PO BID [facility] Last Admin: 08/29/18 08:34 Dose: 2 gm Sevelamer Carbonate (Renvela) 800 mg PO TID [facility] Last Admin: 08/29/18 08:34 Dose: 800 mg Vitamin B Complex/Vit C/Folic Acid (Nephro-Jt) 1 tab PO DAILY [facility] Last Admin: 08/29/18 08:34 Dose: 1 tab - Labs Labs: 08/27/18 20:50 08/27/18 20:50 - Constitutional Appears: No Acute Distress - Eye Exam Eye Exam: Conjunctival injection - ENT Exam ENT Exam: Mucous Membranes Moist - Neck Exam Neck Exam: absent: Lymphadenopathy - Respiratory Exam Respiratory Exam: NORMAL BREATHING PATTERN. absent: Chest Wall Tenderness - Cardiovascular Exam Cardiovascular Exam: REGULAR RHYTHM. absent: Gallop, JVD, Rubs - GI/Abdominal Exam GI & Abdominal Exam: Soft, Normal Bowel Sounds - Extremities Exam Extremities Exam: absent: Calf Tenderness - Back Exam Back Exam: absent: CVA tenderness (L), CVA tenderness (R) - Neurological Exam Neurological Exam: Alert - Psychiatric Exam Psychiatric exam: Normal Affect - Skin Skin Exam: absent: Cyanosis Assessment and Plan (1) Chronic kidney disease with end stage renal failure on dialysis Assessment & Plan: End-stage renal disease She is receiving hemodialysis now with ultrafiltration about 250 cc. I disc ussed the dialysis order with the dialysis nurse at the bedside. Diabetes mellitus she is on insulin as per primary team Anemia patient receiving EPO Hypertension hypertensive medication Hyperphosphatemia on binders Patient may be discharged today post dialysis if she is stable and follow-up as outpatient patient will be [facility] for evaluation of the right upper fistula. Status: Acute (2) Diabetes mellitus Status: Acute (3) Hyperlipemia Status: Acute (4) Hypertension Status: Acute (5) Hypoglycemia Status: Acute (6) Hypothyroidism Status: Acute
--- NOTE | 2018-08-29 12:11 | CP.PCM.DIS ---
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 Status: Acute Hospital Course - Lab Results Lab Results: Most Recent Lab Values WBC 12.1 K/uL (4.8-10.8) H 08/27/18 20:50 RBC 3.43 Mil/uL (3.80-5.20) L 08/27/18 20:50 Hgb 10.4 g/dL (12.0-16.0) L 08/27/18 20:50 Hct 31.7 % (34.0-47.0) L 08/27/18 20:50 MCV 92.5 fl (81.0-99.0) 08/27/18 20:50 MCH 30.5 pg (27.0-31.0) 08/27/18 20:50 MCHC 33.0 g/dL (33.0-37.0) 08/27/18 20:50 RDW 17.4 % (11.5-14.5) H 08/27/18 20:50 Plt Count 237 K/uL (130-400) 08/27/18 20:50 MPV 8.8 fl (7.2-11.7) 08/27/18 20:50 Neut % (Auto) 76.7 % (50.0-75.0) H 08/27/18 20:50 Lymph % (Auto) 13.3 % (20.0-40.0) L 08/27/18 20:50 [place] % (Auto) 9.4 % (0.0-10.0) 08/27/18 20:50 Eos % (Auto) 0.3 % (0.0-4.0) 08/27/18 20:50 Baso % (Auto) 0.3 % (0.0-2.0) 08/27/18 20:50 Neut # (Auto) 9.2 K/uL (1.8-7.0) H 08/27/18 20:50 Lymph # (Auto) 1.6 K/uL (1.0-4.3) 08/27/18 20:50 [place] # (Auto) 1.1 K/uL (0.0-0.8) H 08/27/18 20:50 Eos # (Auto) 0.0 K/uL (0.0-0.7) 08/27/18 20:50 Baso # (Auto) 0.0 K/uL (0.0-0.2) 08/27/18 20:50 Sodium 135 mmol/l (132-148) 08/27/18 20:50 Potassium 3.7 MMOL/L (3.6-5.0) 08/27/18 20:50 Chloride 95 mmol/L (98-107) L 08/27/18 20:50 Carbon Dioxide 27 mmol/L (22-30) 08/27/18 20:50 Anion Gap 17 (10-20) 08/27/18 20:50 BUN 28 mg/dl (7-17) H 08/27/18 20:50 Creatinine 2.0 mg/dl (0.7-1.2) H 08/27/18 20:50 Est GFR ( Amer) 29 08/27/18 20:50 Est GFR (Non-Af Amer) 24 08/27/18 20:50 POC Glucose (mg/dL) 165 mg/dL (65-110) H 08/29/18 10:57 Random Glucose 258 mg/dL (65-105) H 08/27/18 20:50 Calcium 8.9 mg/dL (8.4-10.2) 08/27/18 20:50 Total Bilirubin 0.4 mg/dl (0.2-1.3) 08/27/18 20:50 AST 45 U/L (14-36) H D 08/27/18 20:50 ALT 47 U/L (9-52) 08/27/18 20:50 Alkaline Phosphatase 68 U/L (38-126) 08/27/18 20:50 Total Protein 7.2 G/DL (6.3-8.2) 08/27/18 20:50 Albumin 3.9 g/dL (3.5-5.0) 08/27/18 20:50 Globulin 3.2 gm/dL (2.2-3.9) 08/27/18 20:50 Albumin/Globulin Ratio 1.2 (1.0-2.1) 08/27/18 20:50 Urine Color Yellow (YELLOW) 08/28/18 05:23 Urine Clarity Slighty-cloudy (Clear) 08/28/18 05:23 Urine pH 7.0 (5.0-8.0) 08/28/18 05:23 Ur Specific [place] 1.009 (1.003-1.030) 08/28/18 05:23 Urine Protein >=500 mg/dL (NEGATIVE) 08/28/18 05:23 Urine Glucose (UA) 50 mg/dL (NEGATIVE) 08/28/18 05:23 Urine Ketones Negative mg/dL (NEGATIVE) 08/28/18 05:23 Urine Blood Negative (NEGATIVE) 08/28/18 05:23 Urine Nitrate Negative (NEGATIVE) 08/28/18 05:23 Urine Bilirubin Negative (NEGATIVE) 08/28/18 05:23 Urine Urobilinogen 0.2-1.0 mg/dL (0.2-1.0) 08/28/18 05:23 Ur Leukocyte Esterase Trace [place]/uL (Negative) 08/28/18 05:23 Urine RBC (Auto) 2 /hpf (0-3) 08/28/18 05:23 Urine Microscopic WBC 13 /hpf (0-5) H 08/28/18 05:23 Ur Squamous Epith Cells 11 /hpf (0-5) H 08/28/18 05:23 Urine Bacteria Rare (<OCC) 08/28/18 05:23 Influenza Typ A,B (EIA) Negative for flu a/b (NEGATIVE) 08/27/18 20:50 - Hospital Course Hospital Course: 78-year-old female with ESRD on HD was admitted due to a near-syncopal episode after hemodialysis. Patient is new to HD and not accustomed to the usual side effects. She reported feeling better but weak throughout admission and had complaints of chronic constipation. Patient received HD on day of discharge and it was tolerated well. Denies headache, dizziness, chest pain, sifficult ambulating, dysuria and syncope. Follow-up with relief worker, Dr Robbins and PMD Dr Hunt. Discharge Exam - Head Exam Head Exam: ATRAUMATIC, NORMAL INSPECTION, NORMOCEPHALIC - Eye Exam Eye Exam: Normal appearance - Neck Exam Neck exam: Normal Inspection - Respiratory Exam Respiratory Exam: NORMAL BREATHING PATTERN, UNREMARKABLE - Cardiovascular Exam Cardiovascular Exam: REGULAR RHYTHM - GI/Abdominal Exam GI & Abdominal Exam: Normal Bowel Sounds, Soft. absent: Tenderness - Extremities Exam Extremities exam: normal inspection - Psychiatric Exam Psychiatric exam: Normal Affect, Normal Mood - Skin Skin Exam: Dry, Intact, Normal Color, Warm Discharge Plan - Discharge Medications Prescriptions: Allopurinol [Zyloprim] 100 mg PO DAILY #30 tab B Complex W-C No.20/Folic Acid [Hunt Caps Softgel] 1 mg PO DAILY #30 capsule Cholecalciferol (Vitamin D3) [Vitamin D3] 2,000 unit PO DAILY #30 capsule Ferrous Sulfate 325 mg PO BID #60 tablet Hydralazine HCl 100 mg PO TID #90 tablet Insulin Aspart Prot/Insuln Asp [Novolog Mix 70-30 Vial] 20 unit SC ACL #1 vial Levothyroxine [Synthroid] 75 mcg PO DAILY@0630 #30 tab Losartan [Cozaar] 100 mg PO DAILY #30 tab Gucqp-1-[id number] Ethyl Esters 1 GM [Lovaza] 4 gm PO BID #60 sgl Vit B Comp No.3/Folic/C/Biotin [Ratchet Setter-Jt Rx Tablet] 1 tab PO DAILY #30 tablet - Follow Up Plan Condition: STABLE Disposition: HOME/ ROUTINE Instructions: Hemodialysis (DC), Generalized Weakness (DC) Additional Instructions: follow up with your primary MD and Dr. Robbins 1 week Referrals: Arnav Robbins MD [Staff Provider] - Pebbles Hunt MD [Primary Care Provider] -
[2018-08-29] MEDS: Insulin Lispro Mix 75/25 100 units/ml (HumaLog) 10ml SC SCH (12:34)
== END 2018-08-29 14:24 | disposition home or self-care (01) ==
LOC: H.ER 19:30 → H.ERHOLD 08-28 01:21 → H.MEDSURG1 08-28 03:02
PROVIDERS: ADMIT Family Medicine; ATTEND Family Medicine
DX: R55 Syncope and collapse (principal); N18.6 End stage renal disease; I12.0 Hypertensive chronic kidney disease with stage 5 chronic kidney disease or end stage renal disease; E11.22 Type 2 diabetes mellitus with diabetic chronic kidney disease; Z99.2 Dependence on renal dialysis; E78.00 Pure hypercholesterolemia, unspecified; E78.5 Hyperlipidemia, unspecified; E03.9 Hypothyroidism, unspecified; E11.21 Type 2 diabetes mellitus with diabetic nephropathy; E83.39 Other disorders of phosphorus metabolism; Z91.013 Allergy to seafood; M19.90 Unspecified osteoarthritis, unspecified site; E11.65 Type 2 diabetes mellitus with hyperglycemia; R53.1 Weakness; D63.8 Anemia in other chronic diseases classified elsewhere; Z79.4 Long term (current) use of insulin; M10.9 Gout, unspecified; K59.09 Other constipation
CPT/HCPCS: 36415; 71046; 80053; 81003; 82948; 85025; 87040; 87086; 87804; 96372; 99285; G0378; J0692; J7030; J7040; Q4081